=== PATIENT | male | born 1960 ===

== ENCOUNTER 2020-11-05 14:48 | Outpatient (CLI) | payer OTHER, SELFPAY ==
--- NOTE | ~2020-11-05 | XR_ITS ---
EXAMINATION: XR chest 2V 11/05/2020 15:11 INDICATION: Shortness of breath PROCEDURE: 2 view chest COMPARISON: 09/16/2017 FINDINGS: The lungs are clear. The cardiomediastinal silhouette is within normal limits. There are no pleural effusions. There is no pneumothorax suspected. Status post median sternotomy. IMPRESSION: 1: NO ACUTE CARDIOPULMONARY DISEASE. Reviewed, dictated and finalized at location B.
== END 2020-11-05 14:49 | disposition home or self-care (01) ==
PROVIDERS: PCP Internal Medicine; Visit Provider Internal Medicine
DX: R06.02 Shortness of breath (principal)
CPT/HCPCS: 71046

== ENCOUNTER 2025-07-28 21:36 | Emergency (ER) | payer SELFPAY ==
--- OUTSIDE RECORDS SUMMARY | 2024-03-18 02:00 | XMS_ITS ---
Author Organization [facility] Address [address] [address] Care Team Providers Care Risk Management Intern Name Role Phone Cam Ramsey M.D. Primary Care Provider Un available ALEXANDRA SHER [facility], RUBY Mijares [phone] REASON FOR VISIT follow-up Encounters Encounter Location Date Provider Diagnosis [facility] [address] [facility] [address] [place] [address] 03/18/2024 RUBY TAY MD [facility] Plan Of Treatment Next Appt Details Provider Name:RUBY TAY MD [facility], 08/25/2025 04:45:00 PM, [address] , [place] [address], [place], [address], Provider Name:RUBY TAY MD [facility], 09/06/2025 11:00:00 AM, [address] , [place], [place], [id number], Progress Notes * JEVON TORRESOB:1960 (64 yo M)Acc No.[id number]:03/18/2024 Progress Notes Patient: DELANEY NULL Provider: Smita Tay MD :1960 A ge:63 Y S ex:Male Date:03/18/2024 Address:[address] [place] [address], [place], [place] Pcp:Cam Ramsey M.D. Subjective: * Chief Complaints: * 1 . Follow-up. * Medical History: Objective: * Vitals: Assessment: Plan: * Treatment: * Billing Information: * Visit Code: * Procedure Codes: * Electronic signature of RUBY TAY MD [facility] , on 07/28/2025 at 09:38 PM DIRECTOR PACKAGING Sign off status: Pending * Provider: Smita Tay MD Date: 0 03/18/2024 Generated for Sandra figueroa/Lorena/Silvestresmitting on: 1 09/28/2024 09:38 PM DIRECTOR PACKAGING
--- OUTSIDE RECORDS SUMMARY | 2024-03-22 02:00 | XMS_ITS ---
Author Organization [facility] Address [address] [facility] [address] [place] [address] Care Team Providers Care Event Planning Intern Name Role Phone Cam Ramsey M.D. Primary Care Provider Un available ALEXANDRA SHER [facility], RUBY Mijares [phone] REASON FOR VISIT follow up appt (Last seen 2020) Encounters Encounter Location Date Provider Diagnosis [facility], [address] [place] [address] 03/22/2024 RUBY TAY MD [facility] Plan Of Treatment Next Appt Details Provider Name:RUBY TAY MD [facility], 08/25/2025 04:45:00 PM, [address] , [facility] [address], [place], [address], Provider Name:RUBY TAY MD [facility], 09/06/2025 11:00:00 AM, [address] , [place], [place], [phone], Progress Notes * JEVON TORRESOB:1960 (64 yo M)Acc No.[id number]:03/22/2024 Progress Notes Patient: DELANEY NULL Provider: Smita Tay MD :1960 A ge:63 Y S ex:Male Date:03/22/2024 Address:[address] [id number] Pcp:Cam Ramsey M.D. Subjective: * Chief Complaints: * 1 . follow up appt (Last seen 2020). * Medical History: Objective: * Vitals: Assessment: Plan: * Treatment: * Billing Information: * Visit Code: * Procedure Codes: * Electronic signature of RU[facility] on 07/28/2025 at 09:37 PM PULLMAN CLERK Sign off status: Pending * Provider: Smita Tay MD Date: 0 03/22/2024 Generated for Sandra figueroa/Lorena/eTransmitting on: 1 09/28/2024 09:37 PM PULLMAN CLERK
--- OUTSIDE RECORDS SUMMARY | 2024-12-12 02:15 | XMS_ITS ---
Author Organization [facility] Address [address] [address] Care Team Providers Care Technical Sales Support Specialist Name Role Phone Cam Ramsey M.D. Primary Care Provider Un available ALEXANDRA SHER [facility], RUBY Mijares [phone] REASON FOR VISIT 6 month f/u Encounters Encounter Location Date Provider Diagnosis [facility] [facility] [address] [place] [address] 12/12/2024 RUBY TAY MD [facility] Plan Of Treatment Next Appt Details Provider Name:RUBY TAY MD [facility], 08/25/2025 04:45:00 PM, [address] , [place] [address], [place], [address], Provider Name:RUBY TAY MD [facility], 09/06/2025 11:00:00 AM, [address] , [place], [place], [phone], Progress Notes * JEVON TORRESOB:1960 (64 yo M)Acc No.[id number]:12/12/2024 Progress Notes Patient: DELANEY NULL Provider: Smita Tay MD :1960 A ge:64 Y S ex:Male Date:12/12/2024 Address:[address] [place], [place] [address], [place] Pcp:Cam Ramsey M.D. Subjective: * Chief Complaints: * 1 . 6 month f/u. * Medical History: Objective: * Vitals: Assessment: Plan: * Treatment: * Billing Information: * Visit Code: * Procedure Codes: * Electronic signature of RUBY TAY MD [facility] MD on 07/28/2025 at 09:38 PM TRANSACTIONAL ATTORNEY Sign off status: Pending * Provider: Smita Tay MD Date: 0 12/12/2024 Generated for Sandra figueroa/Lorena/Gustavo on: 1 09/28/2024 09:38 PM TRANSACTIONAL ATTORNEY
--- NOTE | ~2025-07-28 | XR_ITS ---
XR chest 2V HOSTORY: CHEST PAIN, SOB. COMPARISON:[ None] FINDINGS: Frontal and lateral views of the chest were obtained. The lungs are clear. The heart size is normal in size. Pulmonary vasculature is unremarkable. Osseous structures are intact. IMPRESSION: No acute lung findings.] [ ] Reviewed, dictated and finalized at location S. LOGUE CLERK
--- NOTE | 2025-07-28 21:37 | ECG_ITS ---
Test Date: 2025-07-28 21:42:00 Measurements Intervals Allison Rate: 73 P: 73 [place]: 188 QRS: 37 QRSD: 141 T: 36 QT: 412 QTc: 456 Interpretive Statements SINUS RHYTHM RIGHT BUNDLE BRANCH BLOCK BASELINE ARTIFACT- I, II, III, AVR, AVF, V1, V3-V4 ABNORMAL ECG No previous ECG available for comparison Electronically Signed On 07-29-2025 09:05:38 CLIENT RESOLUTION SPECIALIST by Timur Gomez D.O.
--- OUTSIDE RECORDS SUMMARY | 2025-07-28 21:38 | XMS_ITS | Patient Health Record ---
Author Organization [facility] Address [address] [place] [address] Care Team Providers Care 4Th Grade Teacher Name Role Phone Nishant Ramsey M.D.eep Primary Care Provider Un available ALEXANDRA SHER [facility], [facility] Unavailable [phone] Allergies No Known Allergies Reason For Referral No Information Medications Medication SIG (Take, Route, Frequency, Duration) Notes Start Date End Date Status Nitroglycerin 0.4 MG 1 tablet under the tongue and allow to dissolve as needed. Take every 5 minutes up to 3 times if chest pain persists Sublingual Three times a day; Duration: 30 days As needed 06/29/2025 Active Aspirin 81 81 MG 1 tablet Orally Once a day; Duration: 30 day(s) 07/12/2025 Active Metoprolol Succinate ER 25 MG 1 tablet Orally Once a day; Duration: 90 days 07/12/2025 Active Social History Tobacco Use: Social History Observation Description Date Details (start date - stop date) Never Smoker NA - NA Tobacco Control (Standard) Question Answer Notes Tobacco use: Nonsmoker Problems Problem Type SNOMED Code ICD Code Onset Dates Problem Status W/U Status Risk Notes Problem Angina pectoris (741207085) Angina pectoris (I20.9) Active confirmed Problem History of repair of congenital atrial septal defect (ASD) (Z87.74) Active confirmed Problem Essential hypertension (94150286) Essential (primary) hypertension (I10) 018 Active confirmed Problem Angina pectoris (192772826) Angina pectoris, unspecified (I20.9) 015 Active confirmed Problem Shortness of breath (720869640) Shortness of breath (R06.02) Active confirmed Problem Dyspnea (035873542) Other forms of dyspnea (R06.09) Active confirmed Problem Chest pain (92499938) Chest pain, unspecified (R07.9) Active confirmed Problem Abnormal results of cardiovascular function studies (315783596) Abnormal result of other cardiovascular function study (R94.39) Active confirmed Problem History of circulatory system disease (815681477) Personal history of other diseases of the circulatory system (Z86.79) Active confirmed Problem Automatic implantable cardiac defibrillator in situ (454707805) Presence of automatic (implantable) cardiac defibrillator (Z95.810) Inactive confirmed Inactive Date:03/27 Vital Signs Heart Rate 75 /min 07/12/2025 Respiratory Rate 16 /min 07/12/2025 Oximetry 97 % 01/09/2025 Blood pressure diastolic 78 mm Hg 07/12/2025 Weight-kg 79.38 kg 07/12/2025 Height 67 in 07/12/2025 Blood pressure systolic 136 mm Hg 07/12/2025 Weight 175 lbs 07/12/2025 BMI 27.41 kg/m2 07/12/2025 Encounters Encounter Location Date Provider Diagnosis [facility] [place] [address] [facility] [address] [place] [address] 01/09/2025 RUBY MORRIS MD [facility] History of repair of congenital atrial septal defect (ASD) Z87.74 ; SOB (shortness of breath) on exertion R06.02 and Essential (primary) hypertension I10 [facility] [place] [address] [facility] [address] [place] [address] 07/12/2025 RUBY MORRIS MD [facility] History of repair of congenital atrial septal defect (ASD) Z87.74 ; Angina pectoris I20.9 ; Shortness of breath R06.02 and Essential (primary) hypertension I10 [facility] [place] [address] [facility] [address] [place] [address] 06/29/2025 RUBY MORRIS MD [facility] Assessments Encounter Date Diagnosis (ICD Code) Assessment Notes Treatment Notes Treatment Clinical Notes Section Notes 01/09/2025 History of repair of congenital atrial septal defect (ASD) (ICD-10 - Z87.74) s/p surgical repair in 2006. No murmurs/gallops /rubs on exam. appears stable. will continue to monitor. 07/12/2025 Angina pectoris (ICD-10 - I20.9) Patient reports a chest pain epsiode 1 week ago which was relieved with NTG s/l. He had another episode the other day. He describes them as mild in intesity which radiates across his chest. He also reports SOB with episodes. Discussed indication for CT coronary angiogram for further evaluation. Patient understood and agreed. Will schedule. Starting Metoprolol Succinate 25 mg daily. Starting ASA 81 mg daily. 07/12/2025 History of repair of congenital atrial septal defect (ASD) (ICD-10 - Z87.74) s/p surgical repair in 2006. No murmurs/gallops /rubs on exam. appears stable. will continue to monitor. 07/12/2025 Shortness of breath (ICD-10 - R06.02) As above 01/09/2025 SOB (shortness of breath) on exertion (ICD-10 - R06.02) Patient had reported CHRISTENSEN in the past. Currently asymptomatic. Recent GTX treadmill stress test (06/01/2024) was negative. Will continue to monitor 07/12/2025 Essential (primary) hypertension (ICD-10 - I10) Blood pressure well controlled today, no changes. 01/09/2025 Essential (primary) hypertension (ICD-10 - I10) 07/12/2025 Other Plan Of Treatment Next Appt Details Provider Name:RUBY MORRIS MD [facility], 08/25/2025 04:45:00 PM, [address], [facility] [address], [place], [address], Provider Name:RUBY MORRIS MD [facility], 09/06/2025 11:00:00 AM, [address], [place], [place], [id number], Insurance Providers Payer Name Payer Address Payer Phone Subscriber Number Group Number Insured Name Patient Relationship to Insured Coverage Start Date Coverage End Date MEDICARE [place] [address] [place] [address] [phone] [id number] DELANEY OBREGON Self - patient is the insured Medical (General) History Medical History History ICD Code - ASD s/p surgical repair 2006 Surgical History Surgery Date(Month/Year) 2) s/p appendectomy 3) s/p hailey 1) s/p ASD repair
--- OUTSIDE RECORDS SUMMARY | 2025-07-28 21:38 | XMS_ITS | Clinical Summary ---
Author Organization [facility] Address [address] [facility] [place] [address] Care Team Providers Care Financial Analysis Consultant Name Role Phone Hector Contreras MD Primary Care Provider Unavail able Source Comments [facility],non-owned Affiliates and Associated Physician Practices is amultiple site organization consisting of ambulatory clinics and hospital sitesin [place], [place], [place] and [place]. This disclosure is being madepursuant to the Care Everywhere program and may not contain all information available regarding this patient. Last updated 18.[employer] Allergies No known active allergies Medications * This document contains information received from the source organization and may not represent a complete record from that organization. * Be aware that medications may not be up to date on this document. Alwaysverify current medications with the patient. No known medications Active Problems No known active problems Social History Tobacco Use Types Packs/Day Years Used Date Smoking Tobacco: Former Alcohol Use Standard Drinks/Week Comments No 0 (1 standard drink = 0.6 oz pur e alcohol) Sex and Gender Information Value Date Recorded Sex Assigned at Not on file Legal Sex Male 12:21 PM UX SPECIALIST Gender Identity Not on file Sexual Orientation Not on file Last Filed Vital Signs Vital Sign Reading Time Taken Comments Blood Pressure 112/65 09/19/2015 10:05 AM UX SPECIALIST Pulse 64 09/19/2015 10:05 AM UX SPECIALIST Temperature 35.8 C (96.5 F) 09/19/2015 9:45 AM UX SPECIALIST Respiratory Rate 16 09/19/2015 10:05 AM UX SPECIALIST Oxygen Saturation 100% 09/19/2015 10:05 AM UX SPECIALIST Inhaled Oxygen Concentration - - Weight 76.2 kg (168 lb) 09/18/2015 8:56 AM UX SPECIALIST Height 162.6 cm (5' 4) 09/18/2015 8:56 AM UX SPECIALIST Body Mass Index 28.84 09/18/2015 8:56 AM UX SPECIALIST Plan of Treatment Health Maintenance Due Date Last Done Comments COLOGUARD (AGES 45-75) - COL ON CA SCREENING 1960 CT COLONOGRAPHY - COLON CA SCREENING 1960 FIT - COLON CA SCREENING 1960 FLEX SIG - COLON CA SCREENING 1960 LIPID TESTING 1960 HIV SCREENING 12/02/1974 HEPATITIS C SCREENING 11/28/1977 DTAP/TDAP/TD VACCINES (1 - Tdap) 12/02/1978 PNEUMOCOCCAL VACCINE 50+ (1 of 1 - PCV) 12/02/2009 ZOSTER VACCINE (1 of 2) 12/02/2009 DEPRESSION SCREENING 08/10/2024 AAA SCREENING 12/02/2024 COVID-19 VACCINE (1 - 2024-2 6 season) 2025 INFLUENZA VACCINE (#1) 2025 COLON MONITORING 09/19/2025 09/19/2015, 09/19/2015 COLONOSCOPY - COLON CA SCREENING 09/19/2025 09/19/2015, 09/19/2015 Colorectal Cancer Screening 09/19/2025 Respiratory Syncytial Virus (RSV) Vaccine Pt: or over 60 yrs (1 - 1-dose 75+ series) 12/02/2034 HEPATITIS B VACCINE Aged Out No longe r eligible based on patient's age to complete this topic HIB VACCINE Aged Out No longer eligi ble based on patient's age to complete this topic HPV VACCINE Aged Out No longer eligi ble based on patient's age to complete this topic MENINGOCOCCAL (Group B) VACCINE SHARED DECISION-MAKING Aged Out No longer eligible based on patient's age to complete this topic MENINGOCOCCAL GROUPS A/C/Y/W VACCINE Aged Out No longer eligible b ased on patient's age to complete this topic Procedures Procedure Name Priority Date/Time Associated Diagnosis Comments ENDOSCOPY, COLON, SCREENING Routine 09/19/2015 8:11 AM UX SPECIALIST from Last 3 Months or Most Recently Relevant to Health Maintenance Results * ENDOSCOPY, COLON, SCREENING (09/19/2015 8:11 AM UX SPECIALIST) Report Endoscopy POC _ Patient Name: Delon Torres Procedure Date: 09/19/2015 8:11 AM Date of : 1960 Admit Type: Outpatient Age: 54 Gender: Male Attending MD: Lindsey Perales MD _ Procedure: Colonoscopy Indications: Hematochezia Providers: Lindsey Perales MD (Doctor) Referring MD: Hector Contreras MD (Referring MD) Medicines: Monitored Anesthesia Care Complications: No immediate complications. _ Procedure: Pre-Anesthesia Assessment: - Prior to the procedure, a History and Physical was performed, and patient medications, allergies and sensitivities were reviewed. The patient's tolerance of previous anesthesia was reviewed. - The risks and benefits of the procedure and the sedation options and risks were discussed with the patient. All questions were answered and informed consent was obtained. - Patient identification and proposed procedure were verified prior to the procedure by the nurse. The procedure was verified in the procedure room. - Pre-procedure physical examination revealed no contraindications to sedation. - ASA Grade Assessment: II - A patient with mild systemic disease. - After reviewing the risks and benefits, the patient was deemed in satisfactory condition to undergo the procedure. - The anesthesia plan was to use moderate sedation/analgesia (conscious sedation). - Immediately prior to administration of medications, the patient was re-assessed for adequacy to receive sedatives. - Sedation was administered by an endoscopy nurse. The sedation level attained was moderate. - The heart rate, respiratory rate, oxygen saturations, blood pressure, adequacy of pulmonary ventilation, and response to care were monitored throughout the procedure. - The physical status of the patient was re-assessed after the procedure. After I obtained informed consent, the scope was passed under direct vision. Throughout the procedure, the patient's blood pressure, pulse, and oxygen saturations were monitored continuously. The Colonoscope was introduced through the anus and advanced to the cecum, identified by appendiceal orifice and ileocecal valve. The colonoscopy was performed without difficulty. The patient tolerated the procedure well. The quality of the bowel preparation was excellent. Findings: The perianal examination was normal. A 6 mm polyp was found in the cecum. The polyp was sessile. The polyp was removed with a hot snare. Resection and retrieval were complete. A 9 mm polyp was found at the hepatic flexure. The polyp was sessile. The polyp was removed with a hot snare. Resection and retrieval were complete. A 5 mm polyp was found in the recto-sigmoid colon. The polyp was sessile. The polyp was removed with a hot biopsy forceps. Resection and retrieval were complete. _ Impression: - One 6 mm polyp in the cecum. Resected and retrieved. - One 9 mm polyp at the hepatic flexure. Resected and retrieved. - One 5 mm polyp at the recto-sigmoid colon. Resected and retrieved. Recommendation: - Discharge patient to home (ambulatory). Procedure Code(s): --- Professional --- 61302, Colonoscopy, flexible; with removal of tumor(s), polyp(s), or other lesion(s) by snare technique 40253, 59, Colonoscopy, flexible; with removal of tumor(s), polyp(s), or other lesion(s) by hot biopsy forceps --- Technical --- 71300, Colonoscopy, flexible; with removal of tumor(s), polyp(s), or other lesion(s) by snare technique 85045, 59, Colonoscopy, flexible; with removal of tumor(s), polyp(s), or other lesion(s) by hot biopsy forceps Diagnosis Code(s): --- Professional --- D12.0, Benign neoplasm of cecum D12.3, Benign neoplasm of transverse colon D12.7, Benign neoplasm of rectosigmoid junction K92.1, Melena --- Technical --- D12.0, Benign neoplasm of cecum D12.3, Benign neoplasm of transverse colon D12.7, Benign neoplasm of rectosigmoid junction K92.1, Melena CPT copyright 2014 [employer]. All rights reserved. The codes documented in this report are preliminary and upon process control supervisor review may be revised to meet current compliance requirements. Lindsey Perales MD Lindsey Perales MD 09/19/2015 9:44:31 AM This report has been signed electronically. Number of Addenda: 0 Note Initiated On: 09/19/2015 8:11 AM [facility] 09/19/2015 8:11 AM UX SPECIALIST Lindsey Perales MD GI PROCEDURE ORDERABLES Edite d Result - Final [facility] [place] [address] from Last 3 Months or Most Recently Relevant to Health Maintenance Insurance [employer] Care Teams Financial Analysis Consultant Relationship Specialty Start Date End Date Hector Contreras MD PCP - General Internal Medicine 09/19/15
--- OUTSIDE RECORDS SUMMARY | 2025-07-28 21:38 | XMS_ITS | Clinical Summary ---
Author Organization [facility] Address [address] [place] [address] Care Team Providers Care Steersman Name Role Phone Cam Ramsey MD Unavailable [phone] Social History Tobacco Use Types Packs/Day Years Used Date Smoking Tobacco: Never Assessed Sex and Gender Information Value Date Recorded Sex Assigned at Not on file Legal Sex Male 12:39 PM CDT Gender Identity Not on file Sexual Orientation Not on file Plan of Treatment Health Maintenance Due Date Last Done Comments Colorectal Cancer Screening Colonoscopy (10 Years) 1960 Hepatitis C 12/02/1977 DTaP, Tdap and Td Vaccines ( 1 - Tdap) 12/02/1978 Pneumococcal Vaccine: 50+ Ye ars (1 of 1 - PCV) 12/02/2009 Zoster Vaccines (1 of 2) 12/02/2009 PHQ-2 (Physician [place]) 08/10/2024 COVID-19 Vaccine ( - 2024-2 6 season) 2025 Influenza Adult (#1) 2025 RSV Immunization or 60+ Years (1 - 1-dose 75+ series) 12/02/2034 Hepatitis A Vaccines Aged Out No long er eligible based on patient's age to complete this topic Meningococcal B Vaccine Aged Out No l onger eligible based on patient's age to complete this topic Meningococcal Vaccine Aged Out No zack carolann eligible based on patient's age to complete this topic RSV Immunizations Under 20 Months Aged Out No longer eligible based on patient's age to complete this topic Insurance [employer] Care Teams Steersman Relationship Specialty Start Date End Date Cam Ramsey MD [address] [facility] [address] [place] [address] INTERNAL MEDICINE 11/26/23
--- OUTSIDE RECORDS SUMMARY | 2025-07-28 21:38 | XMS_ITS | Data Portability ---
Author Organization [place] - [facility], [facility] Address [address] [facility] [address] [place] [address] Assessment No assessment recorded. Plan of Treatment Reminders Order Date Submit Date Provider Last Modified By Organization Details Last Modified Time Details Appointments Follow Up 15 2025 09:15A M Cam Ramsey MD Not available Not available Not available Lab uric acid, serum or plasma 2024 026 [email or web address] 7 [facility], [address], [address], [address], 04/19/2025 10:50:59 HbA1c (hemoglob in A1c), blood 2024 025 HELEN [facility], [address], [facility] [address], [address], 04/25/2025 03:36:09 HbA1c (hemoglob in A1c), blood 2024 026 [email or web address] 7 [facility], [address], [facility] [address], [address], 04/19/2025 10:51:00 lipid panel, serum 2024 026 [email or web address] 7 [facility], [address], [facility] [address], [address], 04/19/2025 10:50:59 TSH, serum or plasma 2024 026 [email or web address] 7 [facility], [address], [address], [place], [address], 04/19/2025 10:50:59 CBC 2024 025 HELEN [facility], [address], [address], [place], [address], 04/25/2025 03:36:07 CMP, serum or plasma 2024 025 HELEN [facility], [address], [address], [place], [address], 04/25/2025 03:36:06 urinalysi s complete, reflex culture 2024 026 [email or web address] 7 [facility], [address], [address], [place], [address], 04/19/2025 10:50:59 uric acid, serum or plasma 2024 025 HELEN Not available 11/11/2024 03:44:06 erythrocy te sedimenta tion rate by westergre n method 2024 025 HELEN Not available 11/11/2024 03:44:07 C-reactiv e protein, quantitat lovely, serum or plasma 2024 025 HELEN Not available 11/11/2024 03:44:09 lipid panel, serum 2024 025 HELEN Not available 11/11/2024 03:44:06 TSH, serum or plasma 2024 025 HELEN Not available 11/11/2024 03:44:09 CMP, serum or plasma 2024 025 HELEN Not available 11/11/2024 03:44:07 urinalysi s complete, reflex culture 2024 025 HELEN Not available 11/11/2024 03:44:08 PSA, serum or plasma 2024 025 HELEN Not available 11/11/2024 03:44:10 microalbu min/creat inine, mass ratio, urine 2024 025 HELEN Not available 11/11/2024 03:44:07 CBC w/ auto diff 2024 025 HELEN Not available 11/11/2024 03:44:09 CMP, serum or plasma 2024 025 HELEN Not available 04/23/2025 05:01:05 CBC w/ auto diff 2023 024 HELEN Not available 01/19/2024 21:42:59 CMP, serum or plasma 2023 024 HELEN Not available 01/19/2024 21:42:58 uric acid, serum or plasma 2023 024 HELEN Not available 10/16/2023 05:18:53 uric acid, serum or plasma 2023 024 Not available 10/16/2023 15:11:58 HbA1c (hemoglob in A1c), blood 2023 024 HELEN Not available 10/16/2023 05:18:57 CBC w/ auto diff 2023 024 HELEN Not available 10/16/2023 05:18:54 TSH, serum or plasma 2023 024 HELEN Not available 10/16/2023 05:18:56 lipid panel, serum 2023 024 HELEN Not available 10/16/2023 05:18:52 lipid panel, serum 2023 024 Not available 10/28/2023 14:18:21 TSH, serum or plasma 2023 024 Not available 10/16/2023 15:11:58 urinalysi s complete, reflex culture 2023 024 HELEN Not available 10/16/2023 05:18:55 CBC w/ auto diff 2023 024 Not available 10/28/2023 14:18:21 CMP, serum or plasma 2023 024 HELEN Not available 10/16/2023 05:18:53 PSA, serum or plasma 2023 024 HELEN Not available 10/16/2023 05:18:56 Referral gastroent erologist referral 2023 024 HELENAUBREY Perry DO, [address] [facility], [address], [place], [address], 12/01/2023 15:25:18 physical therapist referral 2023 024 [facility], [address] [place] [address] , [place], [address], 06/17/2024 11:50:46 Procedures lexiscan cardiolit e stress test (PROC) 2023 024 [id number] Scheduling Department, [address] [place] [address], [address], 11/02/2023 18:28:52 Surgeries None recorded. Imaging None recorded. Medication Orders fluticaso ne propionat e 50 mcg/actua tion nasal spray,andrew pension 2024 025 [id number], [address] [place], [place], [id number], 04/19/2025 10:51:09 loratadin e 10 mg tablet 2024 025 [id number], [address] [place], [id number], 10/13/2024 10:48:51 fluticaso ne propionat e 50 mcg/actua tion nasal spray,andrew pension 2024 025 [place] [id number], [address] [place], [id number], 10/13/2024 10:48:49 Anusol-HC 25 mg rectal supposito ry 2023 024 [id number], [address], [place], [id number], 11/10/2023 12:07:55 Patient TargetsNo targets recorded. Patient Instructions Encounter Date Encounter Id Patient Instructions Last Modified By Organization Details Last Modified Time 10/09/2023 [id number] cervical disc disease: care instructions [email or web address] Not available 10/09/2023 12:10:00 high cholesterol : care instructions [email or web address] Not available 10/09/2023 12:09:59 hemorrhoids: car e instructions [email or web address] Not available 10/09/2023 12:09:59 11/10/2023 [id number] cervical disc disease: care instructions [email or web address] Not available 11/10/2023 12:01:14 hemorrhoids: car e instructions [email or web address] Not available 11/10/2023 12:01:14 high cholesterol : care instructions [email or web address] Not available 11/10/2023 12:01:14 10/13/2024 [id number] cervical disc disease: care instructions [email or web address] Not available 10/13/2024 10:48:41 high cholesterol : care instructions [email or web address] Not available 10/13/2024 10:48:40 hemorrhoids: car e instructions [email or web address] Not available 10/13/2024 10:48:40 hearing loss: care instructions [email or web address] Not available 10/13/2024 10:48:40 I spent a total of _31 minutes (excluding separately reportable procedure time ) in care of this patient. [email or web address] Not available 10/13/2024 10:49:04 04/19/2025 [id number] cervical disc disease: care instructions [email or web address] Not available 04/19/2025 10:51:00 high cholesterol : care instructions [email or web address] Not available 04/19/2025 10:50:59 hemorrhoids: car e instructions [email or web address] Not available 04/19/2025 10:50:59 seasonal allergies: care instructions [email or web address] Not available 04/19/2025 10:50:59 hearing loss: care instructions [email or web address] Not available 04/19/2025 10:50:59 I spent a total of __33____ minutes (excluding separately reportable procedure time ) in care of this patient. Not available 04/19/2025 10:51:09 Reason for Referral Physical Therapist Referral for Degeneration of cervical intervertebral disc Referring Physician: Cam Ramsey, Internal Medicine, Encounter Date: 10/09/2023 Mirror Framer Referral for Hemorrhoids Referring Physician: Cam Ramsey, Internal Medicine, Encounter Date: 11/10/2023 Results Created Date Observation Date Name Description Value Unit Range Abnormal Flag Note LastModifiedBy Organization Detail LastModifiedTime 10/15/19 24 10/16/2023 LIPID PANEL , STAND CRISTY cholesterol, total 182 mg/dL <200 normal Not Available [address] [place], [address], 10/16/2023 05:18:52 10/15/19 24 10/16/2023 LIPID PANEL , STAND CRISTY HDL cholesterol 48 mg/dL > or = 40 normal Not Available [address] [address] [place], [address], 10/16/2023 05:18:52 10/15/19 24 10/16/2023 LIPID PANEL , STAND CRISTY triglyceride s 124 mg/dL <150 normal Not Available [address] [address] [place], [address], 10/16/2023 05:18:52 10/15/1910/16/2023 LIPID PANEL , STAND CRISTY LDL-choleste rol 111 mg/dL _(cristina c) high Refer ence range : <100 Freddie able range <100 mg/dL for prima ry preve ntion ; <70 mg/dL for patie nts with CHD or diabe tic patie nts with > or = 2 CHD risk facto rs. LDL-C is now calcu lated using the [facility] franciscou judie n, which is a valid ated novel ricardoo dee rodgers than the Fried marissa equat ion in the estim ation of LDL-C . [facility] SS et al. SEGUNDO. 2013; 310(1 9): 2061- 2068 (http ://ed ucati on.Qu estAdmittor. com/f aq/FA Q164) Not Available [facility] [address] [address] [place], [address], 10/16/2023 05:18:52 10/15/19 24 10/16/2023 LIPID PANEL , STAND CRISTY chol/HDLC ratio 3.8 (calc ) <5.0 normal Not Available [address] [address] [address], [place], [address], 10/16/2023 05:18:52 10/15/19 24 10/16/2023 LIPID PANEL , STAND CRISTY non HDL cholesterol 134 mg/dL _(cristina c) <130 high For patie nts with diabe mayo plus 1 major ASCVD risk facto r, treat ing to a non-H DL-C goal of <100 mg/dL (LDL- C of <70 mg/dL ) is consi dered a thera peuti c optio n. Not Available [facility] [address] [address] [address] , [place], [address], 10/16/2023 05:18:52 10/15/19 24 10/16/2023 URIC ACID uric acid 6.4 mg/dL 4.0-8. 0 normal Thera peuti c targe t for gout patie nts: <6.0 mg/dL Not Available [facility] [address] [address] [place], [address], 10/16/2023 05:18:53 10/15/19 24 10/16/2023 COMPR EHENS LOVELY METAB OLIC PANEL glucose 100 mg/dL 65-99 high Fasti ng refer ence inter kevin For someo ne witho ut known diabe mayo, a gluco se value betwe en 100 and 125 mg/dL is consi stent with predi abete s and shoul d be confi rmed with a follo w-up test. Not Available [address], [address], 10/16/2023 05:18:53 10/15/19 24 10/16/2023 COMPR EHENS LOVELY METAB OLIC PANEL urea nitrogen (BUN) 20 mg/dL 7-25 normal Not Available [facility] [address], [address], 10/16/2023 05:18:53 10/15/19 24 10/16/2023 COMPR EHENS LOVELY METAB OLIC PANEL creatinine 1.14 mg/dL 0.70-1 .35 normal Not Available [address], [address], 10/16/2023 05:18:53 10/15/19 24 10/16/2023 COMPR EHENS LOVELY METAB OLIC PANEL eGFR 72 mL/mi n/1.7 3m2 > or = 60 normal Not Available [address], [address], 10/16/2023 05:18:53 10/15/19 24 10/16/2023 COMPR EHENS LOVELY METAB OLIC PANEL BUN/creatini ne ratio SEE NOTE: (calc ) 6-22 Not Repor ok: BUN and Creat inine are withi n refer ence range . Not Available [facility] [address], [address], 10/16/2023 05:18:53 10/15/19 24 10/16/2023 COMPR EHENS LOVELY METAB OLIC PANEL sodium 140 mmol/ L 135-14 6 normal Not Available [facility] [address], [address], 10/16/2023 05:18:53 10/15/19 24 10/16/2023 COMPR EHENS LOVELY METAB OLIC PANEL potassium 4.2 mmol/ L 3.5-5. 3 normal Not Available [address], [address], 10/16/2023 05:18:53 10/15/19 24 10/16/2023 COMPR EHENS LOVELY METAB OLIC PANEL chloride 102 mmol/ L 98-110 normal Not Available [address], [address], 10/16/2023 05:18:53 10/15/19 24 10/16/2023 COMPR EHENS LOVELY METAB OLIC PANEL carbon dioxide 31 mmol/ L 20-32 normal Not Available [address], [address], 10/16/2023 05:18:53 10/15/19 24 10/16/2023 COMPR EHENS LOVELY METAB OLIC PANEL calcium 9.4 mg/dL 8.6-10 .3 normal Not Available [address], [address], 10/16/2023 05:18:53 10/15/19 24 10/16/2023 COMPR EHENS LOVELY METAB OLIC PANEL protein, total 7.3 g/dL 6.1-8. 1 normal Not Available [address], [address], 10/16/2023 05:18:53 10/15/19 24 10/16/2023 COMPR EHENS LOVELY METAB OLIC PANEL albumin 4.7 g/dL 3.6-5. 1 normal Not Available [address], [address], 10/16/2023 05:18:53 10/15/19 24 10/16/2023 COMPR EHENS LOVELY METAB OLIC PANEL globulin 2.6 g/dL_ (calc ) 1.9-3. 7 normal Not Available [address], [address], 10/16/2023 05:18:53 10/15/19 24 10/16/2023 COMPR EHENS LOVELY METAB OLIC PANEL albumin/glob ulin ratio 1.8 (calc ) 1.0-2. 5 normal Not Available [address], [address], 10/16/2023 05:18:53 10/15/19 24 10/16/2023 COMPR EHENS LOVELY METAB OLIC PANEL bilirubin, total 0.8 mg/dL 0.2-1. 2 normal Not Available [address], [address], 10/16/2023 05:18:53 10/15/19 24 10/16/2023 COMPR EHENS LOVELY METAB OLIC PANEL alkaline phosphatase 83 U/L 35-144 normal Not Available [address], [address], 10/16/2023 05:18:53 10/15/19 24 10/16/2023 COMPR EHENS LOVELY METAB OLIC PANEL AST 17 U/L 10-35 normal Not Available [address], [address], 10/16/2023 05:18:53 10/15/19 24 10/16/2023 COMPR EHENS LOVELY METAB OLIC PANEL ALT 17 U/L 9-46 normal Not Available [address], [address], 10/16/2023 05:18:53 10/15/19 24 10/16/2023 CBC (INCL UDES DIFF/ PLT) white blood cell count 5.1 thous and/u L 3.8-10 .8 normal Not Available [address], [address], 10/16/2023 05:18:54 10/15/19 24 10/16/2023 CBC (INCL UDES DIFF/ PLT) red blood cell count 5.34 michell on/uL 4.20-5 .80 normal Not Available [address], [address], 10/16/2023 05:18:54 10/15/19 24 10/16/2023 CBC (INCL UDES DIFF/ PLT) hemoglobin 16.6 g/dL 13.2-1 7.1 normal Not Available [address], [address], 10/16/2023 05:18:54 10/15/19 24 10/16/2023 CBC (INCL UDES DIFF/ PLT) hematocrit 48.8 % 38.5-5 0.0 normal Not Available [address], [address], 10/16/2023 05:18:54 10/15/19 24 10/16/2023 CBC (INCL UDES DIFF/ PLT) MCV 91.4 fL 80.0-1 00.0 normal Not Available [address], [address], 10/16/2023 05:18:54 10/15/19 24 10/16/2023 CBC (INCL UDES DIFF/ PLT) MCH 31.1 pg 27.0-3 3.0 normal Not Available [address], [address], 10/16/2023 05:18:54 10/15/19 24 10/16/2023 CBC (INCL UDES DIFF/ PLT) MCHC 34.0 g/dL 32.0-3 6.0 normal Not Available [address], [address], 10/16/2023 05:18:54 10/15/19 24 10/16/2023 CBC (INCL UDES DIFF/ PLT) RDW 12.9 % 11.0-1 5.0 normal Not Available [address], [address], 10/16/2023 05:18:54 10/15/19 24 10/16/2023 CBC (INCL UDES DIFF/ PLT) platelet count 241 thous and/u L 140-40 0 normal Not Available [address], [address], 10/16/2023 05:18:54 10/15/19 24 10/16/2023 CBC (INCL UDES DIFF/ PLT) MPV 10.1 fL 7.5-12 .5 normal Not Available [address], [address], 10/16/2023 05:18:54 10/15/19 24 10/16/2023 CBC (INCL UDES DIFF/ PLT) absolute neutrophils 3249 cells /uL 1500-7 800 normal Not Available [address], [address], 10/16/2023 05:18:54 10/15/19 24 10/16/2023 CBC (INCL UDES DIFF/ PLT) absolute lymphocytes 1199 cells /uL 850-39 00 normal Not Available [address], [address], 10/16/2023 05:18:54 10/15/19 24 10/16/2023 CBC (INCL UDES DIFF/ PLT) absolute monocytes 383 cells /uL 200-95 0 normal Not Available [facility] [address], [address], 10/16/2023 05:18:54 10/15/19 24 10/16/2023 CBC (INCL UDES DIFF/ PLT) absolute eosinophils 250 cells /uL 15-500 normal Not Available [facility] [address], [address], 10/16/2023 05:18:54 10/15/19 24 10/16/2023 CBC (INCL UDES DIFF/ PLT) absolute basophils 20 cells /uL 0-200 normal Not Available [address], [address], 10/16/2023 05:18:54 10/15/19 24 10/16/2023 CBC (INCL UDES DIFF/ PLT) neutrophils 63.7 % normal Not Available [address], [address], 10/16/2023 05:18:54 10/15/19 24 10/16/2023 CBC (INCL UDES DIFF/ PLT) lymphocytes 23.5 % normal Not Available [address], [address], 10/16/2023 05:18:54 10/15/19 24 10/16/2023 CBC (INCL UDES DIFF/ PLT) monocytes 7.5 % normal Not Available [address], [address], 10/16/2023 05:18:54 10/15/19 24 10/16/2023 CBC (INCL UDES DIFF/ PLT) eosinophils 4.9 % normal Not Available [address], [address], 10/16/2023 05:18:54 10/15/19 24 10/16/2023 CBC (INCL UDES DIFF/ PLT) basophils 0.4 % normal Not Available [address], [address], 10/16/2023 05:18:54 10/15/19 24 10/16/2023 URINA LYSIS , COMPL ETE W/REF STEVENSON TO CULTU RE color YELLOW yellow normal Not Available [address], [address], 10/16/2023 05:18:54 03/07/10/16/2023 URINA LYSIS , COMPL ETE W/REF STEVENSON TO CULTU RE appearance CLEAR clear normal Not Available [address], [address], 10/16/2023 05:18:54 10/15/19 24 10/16/2023 URINA LYSIS , COMPL ETE W/REF STEVENSON TO CULTU RE specific gravity 1.021 1.001- 1.035 normal Not Available [address], [address], 10/16/2023 05:18:54 10/15/19 24 10/16/2023 URINA LYSIS , COMPL ETE W/REF STEVENSON TO CULTU RE pH 6.5 5.0-8. 0 normal Not Available [address], [address], 10/16/2023 05:18:54 10/15/19 24 10/16/2023 URINA LYSIS , COMPL ETE W/REF STEVENSON TO CULTU RE glucose NEGATI VE negati ve normal Not Available [address], [address], 10/16/2023 05:18:54 10/15/19 24 10/16/2023 URINA LYSIS , COMPL ETE W/REF STEVENSON TO CULTU RE bilirubin NEGATI VE negati ve normal Not Available [address], [address], 10/16/2023 05:18:54 10/15/19 24 10/16/2023 URINA LYSIS , COMPL ETE W/REF STEVENSON TO CULTU RE ketones NEGATI VE negati ve normal Not Available [address], [address], 10/16/2023 05:18:54 10/15/19 24 10/16/2023 URINA LYSIS , COMPL ETE W/REF STEVENSON TO CULTU RE occult blood NEGATI VE negati ve normal Not Available [address], [address], 10/16/2023 05:18:54 10/15/19 24 10/16/2023 URINA LYSIS , COMPL ETE W/REF STEVENOSN TO CULTU RE protein NEGATI VE negati ve normal Not Available [facility] [address], [address], 10/16/2023 05:18:54 10/15/19 24 10/16/2023 URINA LYSIS , COMPL ETE W/REF STEVENSON TO CULTU RE nitrite NEGATI VE negati ve normal Not Available [facility] [address], [address], 10/16/2023 05:18:54 10/15/19 24 10/16/2023 URINA LYSIS , COMPL ETE W/REF STEVENSON TO CULTU RE leukocyte esterase NEGATI VE negati ve normal Not Available [address], [address], 10/16/2023 05:18:54 10/15/19 24 10/16/2023 URINA LYSIS , COMPL ETE W/REF STEVENSON TO CULTU RE WBC NONE SEEN /hpf < or = 5 normal Not Available [address], [address], 10/16/2023 05:18:54 10/15/19 24 10/16/2023 URINA LYSIS , COMPL ETE W/REF STEVENSON TO CULTU RE RBC NONE SEEN /hpf < or = 2 normal Not Available [facility] [address], [address], 10/16/2023 05:18:54 10/15/19 24 10/16/2023 URINA LYSIS , COMPL ETE W/REF STEVENSON TO CULTU RE squamous epithelial cells NONE SEEN /hpf < or = 5 normal Not Available [address], [address], 10/16/2023 05:18:54 10/15/19 24 10/16/2023 URINA LYSIS , COMPL ETE W/REF STEVENSON TO CULTU RE bacteria NONE SEEN /hpf none seen normal Not Available [address], [address], 10/16/2023 05:18:54 10/15/19 24 10/16/2023 URINA LYSIS , COMPL ETE W/REF STEVENSON TO CULTU RE hyaline cast NONE SEEN /lpf none seen normal Not Available [facility] [address], [address], 10/16/2023 05:18:54 10/15/19 24 10/16/2023 URINA LYSIS , COMPL ETE W/REF STEVENSON TO CULTU RE note This urine was freddy zed for the prese nce of WBC, RBC, bacte fany, casts , and other forme d eleme nts. Only those eleme nts seen were repor ok. Not Available [address], [address], 10/16/2023 05:18:54 10/15/19 24 10/16/2023 REFLE XIVE URINE CULTU RE reflexive urine culture NO CULTU RE INDIC ATED Not Available [address], [address], 10/16/2023 05:18:55 10/15/19 24 10/16/2023 PSA, TOTAL PSA, total 0.62 NG/mL < or = 4.00 normal The total PSA value from this assay syste m is stand ardiz ed again st the WHO stand cristy. The test resul t will be appro ximat vahe 20% lower when silvano red to the equim olar- stand ardiz ed total PSA (Delong man Coult er). Silvano rison of seria l PSA resul ts shoul d be inter prete d with this fact in mind. This test was perfo rmed using the Sieme Tame chemi lumin escen t metho d. Value s obtai dru from diffe rent assay metho ds canno t be used inter knutson eably . PSA level s, regar dless of value , shoul d not be inter prete d as absol [place] evide nce of the prese nce or absen ce of disea se. Not Available [facility] [address] [place], [address], 10/16/2023 05:18:56 10/15/19 24 10/16/2023 TSH TSH 2.05 mIU/L 0.40-4 .50 normal Not Available [facility] [address] [place], [address], 10/16/2023 05:18:56 10/15/1910/16/2023 HEMOG LOBIN A1C hemoglobin A1C 5.4 %_of_ total _HGB <5.7 normal For the purpo se of scremigel copeland for the prese nce of diabe mayo: <5.7% Consi stent with the absen ce of diabe mayo 5.7-6 .4% Consi stent with incre ased risk for diabe mayo (pred iabet es) > or =6.5% Consi stent with diabe mayo This assay resul t is consi stent with a decre ased risk of diabe mayo. Curre ntly, no conse nsus exist s tabby aponte use of hemog lobin A1c for diagn osis of diabe mayo in child abdirashid. Accor ding to Ameri can Diabe mayo Assoc iatio n (ADA) guide lines , hemog lobin A1c <7.0% repre sents optim al contr ol in non-p regna nt diabe tic patie nts. Diffe rent metri cs may apply to speci fic patie nt popul ation s. Stand ards of Medic al Care in Diabe mayo(A DA). This test was perfo rmed on the Abbot t Archi tect c8000 platf orm. Pleas e be advis ed that [facility] will move hemog lobin A1c testi ng to the [facility] platf orm soon. In gener al, direc t silvano rison of the resul ts from diffe rent plat orms is not recom jeremias d. Not Available [address] [place], [address], 10/16/2023 05:18:57 01/19/20 24 01/19/2024 COMPR EHENS LOVELY METAB OLIC PANEL glucose 101 mg/dL 65-99 high Fasti ng refer ence inter kevin For someo ne witho ut known diabe mayo, a gluco se value betwe en 100 and 125 mg/dL is consi stent with predi abete s and shoul d be confi rmed with a follo w-up test. Not Available [address], [address], 01/19/2024 21:42:58 01/19/20 24 01/19/2024 COMPR EHENS LOVELY METAB OLIC PANEL urea nitrogen (BUN) 13 mg/dL 7-25 normal Not Available [address] [address] [place], [address], 01/19/2024 21:42:58 01/19/20 24 01/19/2024 COMPR EHENS LOVELY METAB OLIC PANEL creatinine 1.06 mg/dL 0.70-1 .35 normal Not Available [address], [address], 01/19/2024 21:42:58 01/19/20 24 01/19/2024 COMPR EHENS LOVELY METAB OLIC PANEL eGFR 78 mL/mi n/1.7 3m2 > or = 60 normal Not Available [facility] [address], [address], 01/19/2024 21:42:58 01/19/20 24 01/19/2024 COMPR EHENS LOVELY METAB OLIC PANEL BUN/creatini ne ratio SEE NOTE: (calc ) 6-22 Not Repor ok: BUN and Creat inine are withi n refer ence range . Not Available [facility] [address], [address], 01/19/2024 21:42:58 01/19/20 24 01/19/2024 COMPR EHENS LOVELY METAB OLIC PANEL sodium 139 mmol/ L 135-14 6 normal Not Available [address], [address], 01/19/2024 21:42:58 01/19/20 24 01/19/2024 COMPR EHENS LOVELY METAB OLIC PANEL potassium 4.3 mmol/ L 3.5-5. 3 normal Not Available [address], [address], 01/19/2024 21:42:58 01/19/20 24 01/19/2024 COMPR EHENS LOVELY METAB OLIC PANEL chloride 101 mmol/ L 98-110 normal Not Available [address], [address], 01/19/2024 21:42:58 01/19/20 24 01/19/2024 COMPR EHENS LOVELY METAB OLIC PANEL carbon dioxide 31 mmol/ L 20-32 normal Not Available [address], [address], 01/19/2024 21:42:58 01/19/20 24 01/19/2024 COMPR EHENS LOVELY METAB OLIC PANEL calcium 9.3 mg/dL 8.6-10 .3 normal Not Available [address], [address], 01/19/2024 21:42:58 01/19/20 24 01/19/2024 COMPR EHENS LOVELY METAB OLIC PANEL protein, total 6.6 g/dL 6.1-8. 1 normal Not Available [address], [address], 01/19/2024 21:42:58 01/19/20 24 01/19/2024 COMPR EHENS LOVELY METAB OLIC PANEL albumin 4.2 g/dL 3.6-5. 1 normal Not Available [address] [address] [place], [address], 01/19/2024 21:42:58 01/19/20 24 01/19/2024 COMPR EHENS LOVELY METAB OLIC PANEL globulin 2.4 g/dL_ (calc ) 1.9-3. 7 normal Not Available [address], [address], 01/19/2024 21:42:58 01/19/20 24 01/19/2024 COMPR EHENS LOVELY METAB OLIC PANEL albumin/glob ulin ratio 1.8 (calc ) 1.0-2. 5 normal Not Available [address], [address], 01/19/2024 21:42:58 01/19/20 24 01/19/2024 COMPR EHENS LOVELY METAB OLIC PANEL bilirubin, total 0.6 mg/dL 0.2-1. 2 normal Not Available [address], [address], 01/19/2024 21:42:58 01/19/20 24 01/19/2024 COMPR EHENS LOVELY METAB OLIC PANEL alkaline phosphatase 75 U/L 35-144 normal Not Available [address] [address] [place], [address], 01/19/2024 21:42:58 01/19/20 24 01/19/2024 COMPR EHENS LOVELY METAB OLIC PANEL AST 19 U/L 10-35 normal Not Available [address], [address], 01/19/2024 21:42:58 01/19/20 24 01/19/2024 COMPR EHENS LOVELY METAB OLIC PANEL ALT 17 U/L 9-46 normal Not Available [address], [address], 01/19/2024 21:42:58 01/19/20 24 01/19/2024 CBC (INCL UDES DIFF/ PLT) white blood cell count 5.5 thous and/u L 3.8-10 .8 normal Not Available [address], [address], 01/19/2024 21:42:59 01/19/20 24 01/19/2024 CBC (INCL UDES DIFF/ PLT) red blood cell count 5.12 michell on/uL 4.20-5 .80 normal Not Available [address], [address], 01/19/2024 21:42:59 01/19/20 24 01/19/2024 CBC (INCL UDES DIFF/ PLT) hemoglobin 16.1 g/dL 13.2-1 7.1 normal Not Available [address], [address], 01/19/2024 21:42:59 01/19/20 24 01/19/2024 CBC (INCL UDES DIFF/ PLT) hematocrit 47.0 % 38.5-5 0.0 normal Not Available [address], [address], 01/19/2024 21:42:59 01/19/20 24 01/19/2024 CBC (INCL UDES DIFF/ PLT) MCV 91.8 fL 80.0-1 00.0 normal Not Available [address], [address], 01/19/2024 21:42:59 01/19/20 24 01/19/2024 CBC (INCL UDES DIFF/ PLT) MCH 31.4 pg 27.0-3 3.0 normal Not Available [address], [address], 01/19/2024 21:42:59 01/19/20 24 01/19/2024 CBC (INCL UDES DIFF/ PLT) MCHC 34.3 g/dL 32.0-3 6.0 normal Not Available [address], [address], 01/19/2024 21:42:59 01/19/20 24 01/19/2024 CBC (INCL UDES DIFF/ PLT) RDW 12.4 % 11.0-1 5.0 normal Not Available [address], [address], 01/19/2024 21:42:59 01/19/20 24 01/19/2024 CBC (INCL UDES DIFF/ PLT) platelet count 245 thous and/u L 140-40 0 normal Not Available [address], [address], 01/19/2024 21:42:59 01/19/20 24 01/19/2024 CBC (INCL UDES DIFF/ PLT) MPV 10.4 fL 7.5-12 .5 normal Not Available [address], [address], 01/19/2024 21:42:59 01/19/20 24 01/19/2024 CBC (INCL UDES DIFF/ PLT) absolute neutrophils 3383 cells /uL 1500-7 800 normal Not Available [address], [address], 01/19/2024 21:42:59 01/19/20 24 01/19/2024 CBC (INCL UDES DIFF/ PLT) absolute lymphocytes 1392 cells /uL 850-39 00 normal Not Available [address], [address], 01/19/2024 21:42:59 01/19/20 24 01/19/2024 CBC (INCL UDES DIFF/ PLT) absolute monocytes 413 cells /uL 200-95 0 normal Not Available [address] [place], [address], 01/19/2024 21:42:59 01/19/20 24 01/19/2024 CBC (INCL UDES DIFF/ PLT) absolute eosinophils 292 cells /uL 15-500 normal Not Available [facility] [address], [address], 01/19/2024 21:42:59 01/19/20 24 01/19/2024 CBC (INCL UDES DIFF/ PLT) absolute basophils 22 cells /uL 0-200 normal Not Available [facility] [address], [address], 01/19/2024 21:42:59 01/19/20 24 01/19/2024 CBC (INCL UDES DIFF/ PLT) neutrophils 61.5 % normal Not Available [facility] [address], [address], 01/19/2024 21:42:59 01/19/20 24 01/19/2024 CBC (INCL UDES DIFF/ PLT) lymphocytes 25.3 % normal Not Available [facility] [address], [address], 01/19/2024 21:42:59 01/19/20 24 01/19/2024 CBC (INCL UDES DIFF/ PLT) monocytes 7.5 % normal Not Available [facility] [address], [address], 01/19/2024 21:42:59 01/19/20 24 01/19/2024 CBC (INCL UDES DIFF/ PLT) eosinophils 5.3 % normal Not Available [facility] [address], [address], 01/19/2024 21:42:59 01/19/20 24 01/19/2024 CBC (INCL UDES DIFF/ PLT) basophils 0.4 % normal Not Available [facility] [address], [address], 01/19/2024 21:42:59 11/11/19 25 11/11/2024 LIPID PANEL , STAND CRISTY cholesterol, total 164 mg/dL <200 normal Not Available [address] [address] [place], [address], 11/11/2024 03:44:02 11/11/19 25 11/11/2024 LIPID PANEL , STAND CRISTY HDL cholesterol 44 mg/dL > or = 40 normal Not Available [address] [address] [place], [address], 11/11/2024 03:44:02 11/11/19 25 11/11/2024 LIPID PANEL , STAND CRISTY triglyceride s 116 mg/dL <150 normal Not Available [address], [address], 11/11/2024 03:44:02 11/11/19 25 11/11/2024 LIPID PANEL , STAND CRISTY LDL-choleste rol 99 mg/dL _(cristina c) normal Refer ence range : <100 Freddie able range <100 mg/dL for prima ry preve ntion ; <70 mg/dL for patie nts with CHD or diabe tic patie nts with > or = 2 CHD risk facto rs. LDL-C is now calcu lated using the [facility] calcu judie n, which is a valid ated novel ricardoo dee millan accur acy than the Fried marissa equat ion in the estim ation of LDL-C . [facility] SS et al. SEGUNDO. 2013; 310(1 9): 2061- 2068 (http ://ed ucati on.Qu Hector siegelMy Pick Boxs. com/f aq/FA Q164) Not Available [facility] [address] [place], [address], 11/11/2024 03:44:02 11/11/19 25 11/11/2024 LIPID PANEL , STAND CRISTY chol/HDLC ratio 3.7 (calc ) <5.0 normal Not Available [facility] [address] [place], [address], 11/11/2024 03:44:02 11/11/1911/11/2024 LIPID PANEL , STAND CRISTY non HDL cholesterol 120 mg/dL _(cristina c) <130 normal For patie nts with diabe mayo plus 1 major ASCVD risk facto r, treat ing to a non-H DL-C goal of <100 mg/dL (LDL- C of <70 mg/dL ) is consi dered a thera peuti c optio n. Not Available [facility] [address] [address] [place], [address], 11/11/2024 03:44:02 11/11/1911/11/2024 URIC ACID uric acid 5.7 mg/dL 4.0-8. 0 normal Thera peuti c targe t for gout patie nts: <6.0 mg/dL Not Available [facility] [address] [address] [address], [place], [address], 11/11/2024 03:44:06 11/11/1911/11/2024 COMPR EHENS LOVELY METAB OLIC PANEL glucose 118 mg/dL 65-99 high Fasti ng refer ence inter kevin For someo ne witho ut known diabe mayo, a gluco se value betwe en 100 and 125 mg/dL is consi stent with predi abete s and shoul d be confi rmed with a follo w-up test. Not Available [facility] [address] [address] [address], [place], [address], 11/11/2024 03:44:06 11/11/1911/11/2024 COMPR EHENS LOVELY METAB OLIC PANEL urea nitrogen (BUN) 16 mg/dL 7-25 normal Not Available [facility] [address] [address] [place], [address], 11/11/2024 03:44:06 11/11/19 25 11/11/2024 COMPR EHENS LOVELY METAB OLIC PANEL creatinine 1.00 mg/dL 0.70-1 .35 normal Not Available [address], [address], 11/11/2024 03:44:06 11/11/19 25 11/11/2024 COMPR EHENS LOVELY METAB OLIC PANEL eGFR 84 mL/mi n/1.7 3m2 > or = 60 normal Not Available [address], [address], 11/11/2024 03:44:06 11/11/19 25 11/11/2024 COMPR EHENS LOVELY METAB OLIC PANEL BUN/creatini ne ratio SEE NOTE: (calc ) 6-22 Not Repor ok: BUN and Creat inine are withi n refer ence range . Not Available [address], [address], 11/11/2024 03:44:06 11/11/19 25 11/11/2024 COMPR EHENS LOVELY METAB OLIC PANEL sodium 139 mmol/ L 135-14 6 normal Not Available [address], [address], 11/11/2024 03:44:06 11/11/19 25 11/11/2024 COMPR EHENS LOVELY METAB OLIC PANEL potassium 4.5 mmol/ L 3.5-5. 3 normal Not Available [address], [address], 11/11/2024 03:44:06 11/11/19 25 11/11/2024 COMPR EHENS LOVELY METAB OLIC PANEL chloride 104 mmol/ L 98-110 normal Not Available [address], [address], 11/11/2024 03:44:06 11/11/19 25 11/11/2024 COMPR EHENS LOVELY METAB OLIC PANEL carbon dioxide 27 mmol/ L 20-32 normal Not Available [address], [address], 11/11/2024 03:44:06 11/11/19 25 11/11/2024 COMPR EHENS LOVELY METAB OLIC PANEL calcium 9.1 mg/dL 8.6-10 .3 normal Not Available [address], [address], 11/11/2024 03:44:06 11/11/19 25 11/11/2024 COMPR EHENS LOVELY METAB OLIC PANEL protein, total 6.7 g/dL 6.1-8. 1 normal Not Available [address], [address], 11/11/2024 03:44:06 11/11/19 25 11/11/2024 COMPR EHENS LOVELY METAB OLIC PANEL albumin 4.2 g/dL 3.6-5. 1 normal Not Available [address], [address], 11/11/2024 03:44:06 11/11/19 25 11/11/2024 COMPR EHENS LOVELY METAB OLIC PANEL globulin 2.5 g/dL_ (calc ) 1.9-3. 7 normal Not Available [address], [address], 11/11/2024 03:44:06 11/11/19 25 11/11/2024 COMPR EHENS LOVELY METAB OLIC PANEL albumin/glob ulin ratio 1.7 (calc ) 1.0-2. 5 normal Not Available [address], [address], 11/11/2024 03:44:06 11/11/19 25 11/11/2024 COMPR EHENS LOVELY METAB OLIC PANEL bilirubin, total 0.4 mg/dL 0.2-1. 2 normal Not Available [address], [address], 11/11/2024 03:44:06 11/11/19 25 11/11/2024 COMPR EHENS LOVELY METAB OLIC PANEL alkaline phosphatase 81 U/L 35-144 normal Not Available [address], [address], 11/11/2024 03:44:06 11/11/19 25 11/11/2024 COMPR EHENS LOEVLY METAB OLIC PANEL AST 17 U/L 10-35 normal Not Available [address], [address], 11/11/2024 03:44:06 11/11/19 25 11/11/2024 COMPR EHENS LOVELY METAB OLIC PANEL ALT 20 U/L 9-46 normal Not Available [address], [address], 11/11/2024 03:44:06 11/11/19 25 11/11/2024 ALBUM IN, RANDO M URINE W/CRE ATINI NE creatinine, random urine 136 mg/dL 20-320 normal Not Available [address], [address], 11/11/2024 03:44:07 11/11/19 25 11/11/2024 ALBUM IN, RANDO M URINE W/CRE ATINI NE albumin, urine 0.3 mg/dL see note: normal Refer ence Range : Refer ence Range Not estab lishe d Not Available [address], [address], 11/11/2024 03:44:07 11/11/19 25 11/11/2024 ALBUM IN, RANDO M URINE W/CRE ATINI NE albumin/crea tinine ratio, random urine 2 mg/g_ creat <30 normal The ADA defin es abnor malit ies in album in excre tion as follo ws: Album inuri a Categ ory Resul t (mg/g creat inine ) Cindy l to Mildl y incre ased <30 Moder ately incre ased 30-29 9 Sever vahe incre ased > OR = 300 The ADA recom mends that at least two of three speci mens colle cted withi n a 3-6 month perio d be abnor mal befor e consi jenna g a patie nt to be withi n a diagn ostic categ ory. Not Available [address], [address], 11/11/2024 03:44:07 11/11/19 25 11/11/2024 SED RATE BY MODIF IED WESTE RGREN sed rate by modified westergren 2 mm/h < or = 20 normal Not Available [address], [address], 11/11/2024 03:44:07 11/11/19 25 11/11/2024 URINA LYSIS , COMPL ETE W/REF STEVENSON TO CULTU RE color YELLOW yellow normal Not Available [address], [address], 11/11/2024 03:44:08 11/11/19 25 11/11/2024 URINA LYSIS , COMPL ETE W/REF STEVENSON TO CULTU RE appearance CLEAR clear normal Not Available [address], [address], 11/11/2024 03:44:08 11/11/19 25 11/11/2024 URINA LYSIS , COMPL ETE W/REF STEVENSON TO CULTU RE specific gravity 1.016 1.001- 1.035 normal Not Available [address], [address], 11/11/2024 03:44:08 11/11/19 25 11/11/2024 URINA LYSIS , COMPL ETE W/REF STEVENSON TO CULTU RE pH < OR = 5.0 5.0-8. 0 normal Not Available [address], [address], 11/11/2024 03:44:08 11/11/19 25 11/11/2024 URINA LYSIS , COMPL ETE W/REF STEVENSON TO CULTU RE glucose NEGATI VE negati ve normal Not Available [address], [address], 11/11/2024 03:44:08 11/11/19 25 11/11/2024 URINA LYSIS , COMPL ETE W/REF STEVENSON TO CULTU RE bilirubin NEGATI VE negati ve normal Not Available [facility] [address], [address], 11/11/2024 03:44:08 11/11/19 25 11/11/2024 URINA LYSIS , COMPL ETE W/REF STEVENSON TO CULTU RE ketones NEGATI VE negati ve normal Not Available [address], [address], 11/11/2024 03:44:08 11/11/19 25 11/11/2024 URINA LYSIS , COMPL ETE W/REF STEVENSON TO CULTU RE occult blood NEGATI VE negati ve normal Not Available [address], [address], 11/11/2024 03:44:08 11/11/19 25 11/11/2024 URINA LYSIS , COMPL ETE W/REF STEVENSON TO CULTU RE protein NEGATI VE negati ve normal Not Available [address], [address], 11/11/2024 03:44:08 11/11/19 25 11/11/2024 URINA LYSIS , COMPL ETE W/REF STEVENSON TO CULTU RE nitrite NEGATI VE negati ve normal Not Available [facility] [address], [address], 11/11/2024 03:44:08 11/11/19 25 11/11/2024 URINA LYSIS , COMPL ETE W/REF STEVENSON TO CULTU RE leukocyte esterase NEGATI VE negati ve normal Not Available [address], [address], 11/11/2024 03:44:08 11/11/19 25 11/11/2024 URINA LYSIS , COMPL ETE W/REF STEVENSON TO CULTU RE WBC NONE SEEN /hpf < or = 5 normal Not Available [address], [address], 11/11/2024 03:44:08 11/11/19 25 11/11/2024 URINA LYSIS , COMPL ETE W/REF STEVENSON TO CULTU RE RBC NONE SEEN /hpf < or = 2 normal Not Available [address], [address], 11/11/2024 03:44:08 11/11/19 25 11/11/2024 URINA LYSIS , COMPL ETE W/REF STEVENSON TO CULTU RE squamous epithelial cells NONE SEEN /hpf < or = 5 normal Not Available [address], [address], 11/11/2024 03:44:08 11/11/19 25 11/11/2024 URINA LYSIS , COMPL ETE W/REF STEVENSON TO CULTU RE bacteria NONE SEEN /hpf none seen normal Not Available [address], [address], 11/11/2024 03:44:08 11/11/19 25 11/11/2024 URINA LYSIS , COMPL ETE W/REF STEVENSON TO CULTU RE hyaline cast NONE SEEN /lpf none seen normal Not Available [address], [address], 11/11/2024 03:44:08 11/11/19 25 11/11/2024 URINA LYSIS , COMPL ETE W/REF STEVENSON TO CULTU RE note This urine was freddy zed for the prese nce of WBC, RBC, bacte fany, casts , and other forme d eleme nts. Only those eleme nts seen were repor ok. Not Available [address], [address], 11/11/2024 03:44:08 11/11/19 25 11/11/2024 CBC (INCL UDES DIFF/ PLT) white blood cell count 5.2 thous and/u L 3.8-10 .8 normal Not Available [facility] [address], [address], 11/11/2024 03:44:09 11/11/19 25 11/11/2024 CBC (INCL UDES DIFF/ PLT) red blood cell count 5.03 michell on/uL 4.20-5 .80 normal Not Available [facility] [address], [address], 11/11/2024 03:44:09 11/11/19 25 11/11/2024 CBC (INCL UDES DIFF/ PLT) hemoglobin 15.7 g/dL 13.2-1 7.1 normal Not Available [address], [address], 11/11/2024 03:44:09 11/11/19 25 11/11/2024 CBC (INCL UDES DIFF/ PLT) hematocrit 45.0 % 38.5-5 0.0 normal Not Available [facility] [address], [address], 11/11/2024 03:44:09 11/11/19 25 11/11/2024 CBC (INCL UDES DIFF/ PLT) MCV 89.5 fL 80.0-1 00.0 normal Not Available [facility] [address], [address], 11/11/2024 03:44:09 11/11/19 25 11/11/2024 CBC (INCL UDES DIFF/ PLT) MCH 31.2 pg 27.0-3 3.0 normal Not Available [facility] [address], [address], 11/11/2024 03:44:09 11/11/19 25 11/11/2024 CBC (INCL UDES DIFF/ PLT) MCHC 34.9 g/dL 32.0-3 6.0 normal For adult s, a sligh t decre ase in the calcu lated MCHC value (in the range of 30 to 32 g/dL) is most likel y not clini pau signi ficgalo t; naveen er, it shoul d be inter prete d with cauti on in corre lat n with other red cell hernan eters and the patie nt's clini cristina condi tion. Not Available [address], [address], 11/11/2024 03:44:09 11/11/19 25 11/11/2024 CBC (INCL UDES DIFF/ PLT) RDW 12.6 % 11.0-1 5.0 normal Not Available [address], [address], 11/11/2024 03:44:09 11/11/19 25 11/11/2024 CBC (INCL UDES DIFF/ PLT) platelet count 260 thous and/u L 140-40 0 normal Not Available [facility] [address], [address], 11/11/2024 03:44:09 11/11/19 25 11/11/2024 CBC (INCL UDES DIFF/ PLT) MPV 10.0 fL 7.5-12 .5 normal Not Available [facility] [address], [address], 11/11/2024 03:44:09 11/11/19 25 11/11/2024 CBC (INCL UDES DIFF/ PLT) absolute neutrophils 3172 cells /uL 1500-7 800 normal Not Available [facility] [address], [address], 11/11/2024 03:44:09 11/11/19 25 11/11/2024 CBC (INCL UDES DIFF/ PLT) absolute lymphocytes 1378 cells /uL 850-39 00 normal Not Available [address], [address], 11/11/2024 03:44:09 11/11/19 25 11/11/2024 CBC (INCL UDES DIFF/ PLT) absolute monocytes 380 cells /uL 200-95 0 normal Not Available [address], [address], 11/11/2024 03:44:09 11/11/19 25 11/11/2024 CBC (INCL UDES DIFF/ PLT) absolute eosinophils 239 cells /uL 15-500 normal Not Available [address], [address], 11/11/2024 03:44:09 11/11/19 25 11/11/2024 CBC (INCL UDES DIFF/ PLT) absolute basophils 31 cells /uL 0-200 normal Not Available [address], [address], 11/11/2024 03:44:09 11/11/19 25 11/11/2024 CBC (INCL UDES DIFF/ PLT) neutrophils 61 % normal Not Available [address], [address], 11/11/2024 03:44:09 11/11/19 25 11/11/2024 CBC (INCL UDES DIFF/ PLT) lymphocytes 26.5 % normal Not Available [address], [address], 11/11/2024 03:44:09 11/11/19 25 11/11/2024 CBC (INCL UDES DIFF/ PLT) monocytes 7.3 % normal Not Available [address], [address], 11/11/2024 03:44:09 11/11/19 25 11/11/2024 CBC (INCL UDES DIFF/ PLT) eosinophils 4.6 % normal Not Available [address], [address], 11/11/2024 03:44:09 11/11/19 25 11/11/2024 CBC (INCL UDES DIFF/ PLT) basophils 0.6 % normal Not Available [address], [address], 11/11/2024 03:44:09 11/11/19 25 11/11/2024 C-RAFY CTIVE PROTE IN C-reactive protein <3.0 mg/L <8.0 normal Not Available [address], [address], 11/11/2024 03:44:09 11/11/19 25 11/11/2024 TSH TSH 2.80 mIU/L 0.40-4 .50 normal Not Available [address], [address], 11/11/2024 03:44:09 11/11/19 25 11/11/2024 PSA, TOTAL PSA, total 0.64 NG/mL < or = 4.00 normal The total PSA value from this assay syste m is stand ardiz ed again st the WHO stand cristy. The test resul t will be appro ximat vahe 20% lower when silvano red to the equim olar- stand ardiz ed total PSA (Delong man Coult er). Silvano rison of seria l PSA resul ts shoul d be inter prete d with this fact in mind. This test was perfo rmed using the Sieme ns chemi lumin escen t metho d. Value s obtai rdu from diffe rent assay metho ds canno t be used inter knutson eably . PSA level s, regar dless of value , shoul d not be inter prete d as absol [place] evide nce of the prese nce or absen ce of disea se. Not Available [address] [place], [address], 11/11/2024 03:44:10 11/16/19 25 11/15/2024 HEMOG LOBIN A1C hemoglobin A1C 5.8 %_of_ total _HGB <5.7 high For someo ne witho ut known diabe mayo, a hemog lobin A1c value betwe en 5.7% and 6.4% is consi stent with predi abete s and shoul d be confi rmed with a follo w-up test. For someo ne with known diabe mayo, a value <7% indic ates that their diabe mayo is well contr olled . A1c targe ts shoul d be indiv idual ized based on durat ion of diabe mayo, age, comor bid condi tions , and other consi derat ions. This assay resul t is consi stent with an incre ased risk of diabe mayo. Curre ntly, no conse nsus exist s regar ding use of hemog lobin A1c for diagn osis of diabe mayo for child abdirashid. Not Available [address] [address] [place], [address], 11/15/2024 23:58:15 04/24/20 25 04/25/2025 LIPID PANEL , STAND CRISTY cholesterol, total 148 mg/dL <200 normal Not Available [facility] [address] [address] [place], [address], 04/25/2025 03:36:05 04/24/20 25 04/25/2025 LIPID PANEL , STAND CRISTY HDL cholesterol 45 mg/dL > or = 40 normal Not Available [facility] [address] [address] [place], [address], 04/25/2025 03:36:05 04/24/20 25 04/25/2025 LIPID PANEL , STAND CRISTY triglyceride s 107 mg/dL <150 normal Not Available [facility] [address] [place], [address], 04/25/2025 03:36:05 04/24/2004/25/2025 LIPID PANEL , STAND CRISTY LDL-choleste rol 83 mg/dL _(cristina c) normal Refer ence range : <100 Freddie able range <100 mg/dL for prima ry preve ntion ; <70 mg/dL for patie nts with CHD or diabe tic patie nts with > or = 2 CHD risk facto rs. LDL-C is now calcu lated using the [facility] calcu latio n, which is a valid ated novel metho d provi fadi carbajal r accur acy than the Fried marissa equat ion in the estim ation of LDL-C . [facility] SS et al. SEGUNDO. 2013; 310(1 9): 2061- 2068 (http ://ed ucati on.Qu jazminAdmittor. com/f aq/FA Q164) Not Available [address] [address] [address], [place], [address], 04/25/2025 03:36:05 04/24/2004/25/2025 LIPID PANEL , STAND CRISTY chol/HDLC ratio 3.3 (calc ) <5.0 normal Not Available [facility] [address] [place], [address], 04/25/2025 03:36:05 04/24/2004/25/2025 LIPID PANEL , STAND CRISTY non HDL cholesterol 103 mg/dL _(cristina c) <130 normal For patie nts with diabe mayo plus 1 major ASCVD risk facto r, treat ing to a non-H DL-C goal of <100 mg/dL (LDL- C of <70 mg/dL ) is sriram dickens c optio n. Not Available [facility] [address] [place], [address], 04/25/2025 03:36:05 04/24/2004/25/2025 URIC ACID uric acid 6.7 mg/dL 4.0-8. 0 normal Thera pesabino c targe t for gout patie nts: <6.0 mg/dL Not Available [address], [address], 04/25/2025 03:36:06 04/24/2004/25/2025 COMPR EHENS LOVELY METAB OLIC PANEL glucose 101 mg/dL 65-99 high Fasti ng refer ence inter kevin For someo ne witho ut known diabe mayo, a gluco se value betwe en 100 and 125 mg/dL is consi stent with predi abete s and shoul d be confi rmed with a follo w-up test. Not Available [address], [address], 04/25/2025 03:36:06 04/24/2004/25/2025 COMPR EHENS LOVELY METAB OLIC PANEL urea nitrogen (BUN) 24 mg/dL 7-25 normal Not Available [address], [address], 04/25/2025 03:36:06 04/24/2004/25/2025 COMPR EHENS LOVELY METAB OLIC PANEL creatinine 1.07 mg/dL 0.70-1 .35 normal Not Available [facility] [address], [address], 04/25/2025 03:36:06 04/24/2004/25/2025 COMPR EHENS LOVELY METAB OLIC PANEL eGFR 77 mL/mi n/1.7 3m2 > or = 60 normal Not Available [address], [address], 04/25/2025 03:36:06 04/24/2004/25/2025 COMPR EHENS LOVELY METAB OLIC PANEL BUN/creatini ne ratio SEE NOTE: (calc ) 6-22 Not Repor ok: BUN and Creat inine are withi n refer ence range . Not Available [facility] [place] [address] [place], [address], 04/25/2025 03:36:06 04/24/2004/25/2025 COMPR EHENS LOVELY METAB OLIC PANEL sodium 139 mmol/ L 135-14 6 normal Not Available [address], [address], 04/25/2025 03:36:06 04/24/2004/25/2025 COMPR EHENS LOVELY METAB OLIC PANEL potassium 4.2 mmol/ L 3.5-5. 3 normal Not Available [address], [address], 04/25/2025 03:36:06 04/24/2004/25/2025 COMPR EHENS LOVELY METAB OLIC PANEL chloride 105 mmol/ L 98-110 normal Not Available [address], [address], 04/25/2025 03:36:06 04/24/2004/25/2025 COMPR EHENS LOVELY METAB OLIC PANEL carbon dioxide 27 mmol/ L 20-32 normal Not Available [address], [address], 04/25/2025 03:36:06 04/24/2004/25/2025 COMPR EHENS LOVELY METAB OLIC PANEL calcium 9.0 mg/dL 8.6-10 .3 normal Not Available [address], [address], 04/25/2025 03:36:06 04/24/2004/25/2025 COMPR EHENS LOVELY METAB OLIC PANEL protein, total 6.6 g/dL 6.1-8. 1 normal Not Available [address], [address], 04/25/2025 03:36:06 04/24/2004 0504/25/2025 COMPR EHENS LOVELY METAB OLIC PANEL albumin 4.3 g/dL 3.6-5. 1 normal Not Available [address], [address], 04/25/2025 03:36:06 04/24/2004/25/2025 COMPR EHENS LOVELY METAB OLIC PANEL globulin 2.3 g/dL_ (calc ) 1.9-3. 7 normal Not Available [address], [address], 04/25/2025 03:36:06 04/24/2004/25/2025 COMPR EHENS LOVELY METAB OLIC PANEL albumin/glob ulin ratio 1.9 (calc ) 1.0-2. 5 normal Not Available [address], [address], 04/25/2025 03:36:06 04/24/2004/25/2025 COMPR EHENS LOVELY METAB OLIC PANEL bilirubin, total 0.6 mg/dL 0.2-1. 2 normal Not Available [address], [address], 04/25/2025 03:36:06 04/24/2004/25/2025 COMPR EHENS LOVELY METAB OLIC PANEL alkaline phosphatase 74 U/L 35-144 normal Not Available [address], [address], 04/25/2025 03:36:06 04/24/2004/25/2025 COMPR EHENS LOVELY METAB OLIC PANEL AST 21 U/L 10-35 normal Not Available [address], [address], 04/25/2025 03:36:06 04/24/2004/25/2025 COMPR EHENS LOVELY METAB OLIC PANEL ALT 17 U/L 9-46 normal Not Available [address], [address], 04/25/2025 03:36:06 04/24/2004/25/2025 CBC (H/H, RBC, INDIC ES, WBC, PLT) white blood cell count 5.5 thous and/u L 3.8-10 .8 normal Not Available [address], [address], 04/25/2025 03:36:07 04/24/2004/25/2025 CBC (H/H, RBC, INDIC ES, WBC, PLT) red blood cell count 4.89 michlel on/uL 4.20-5 .80 normal Not Available [address], [address], 04/25/2025 03:36:07 04/24/2004/25/2025 CBC (H/H, RBC, INDIC ES, WBC, PLT) hemoglobin 15.3 g/dL 13.2-1 7.1 normal Not Available [address], [address], 04/25/2025 03:36:07 04/24/2004/25/2025 CBC (H/H, RBC, INDIC ES, WBC, PLT) hematocrit 45.7 % 38.5-5 0.0 normal Not Available [address], [address], 04/25/2025 03:36:07 04/24/2004/25/2025 CBC (H/H, RBC, INDIC ES, WBC, PLT) MCV 93.5 fL 80.0-1 00.0 normal Not Available [address], [address], 04/25/2025 03:36:07 04/24/2004/25/2025 CBC (H/H, RBC, INDIC ES, WBC, PLT) MCH 31.3 pg 27.0-3 3.0 normal Not Available [address], [address], 04/25/2025 03:36:07 04/24/2004/25/2025 CBC (H/H, RBC, INDIC ES, WBC, PLT) MCHC 33.5 g/dL 32.0-3 6.0 normal For adult s, a sligh t decre ase in the calcu lated MCHC value (in the range of 30 to 32 g/dL) is most likel y not clini pau signi fican t; naveen er, it shoul d be inter prete d with cauti on in corre latio n with other red cell hernan eters and the patie nt's clini cristina condi tion. Not Available [address], [address], 04/25/2025 03:36:07 04/24/2004/25/2025 CBC (H/H, RBC, INDIC ES, WBC, PLT) RDW 12.8 % 11.0-1 5.0 normal Not Available [address], [address], 04/25/2025 03:36:07 04/24/2004/25/2025 CBC (H/H, RBC, INDIC ES, WBC, PLT) platelet count 223 thous and/u L 140-40 0 normal Not Available [address], [address], 04/25/2025 03:36:07 04/24/2004/25/2025 CBC (H/H, RBC, INDIC ES, WBC, PLT) MPV 9.5 fL 7.5-12 .5 normal Not Available [address], [address], 04/25/2025 03:36:07 04/24/2004/25/2025 URINA LYSIS , COMPL ETE W/REF STEVENSON TO CULTU RE color YELLOW yellow normal Not Available [address], [address], 04/25/2025 03:36:07 04/24/2004/25/2025 URINA LYSIS , COMPL ETE W/REF STEVENSON TO CULTU RE appearance CLEAR clear normal Not Available [address], [address], 04/25/2025 03:36:07 04/24/2004/25/2025 URINA LYSIS , COMPL ETE W/REF STEVENSON TO CULTU RE specific gravity 1.015 1.001- 1.035 normal Not Available [address], [address], 04/25/2025 03:36:07 04/24/2004/25/2025 URINA LYSIS , COMPL ETE W/REF STEVENSON TO CULTU RE pH < OR = 5.0 5.0-8. 0 abnormal Not Available [address], [address], 04/25/2025 03:36:07 04/24/2004/25/2025 URINA LYSIS , COMPL ETE W/REF STEVENSON TO CULTU RE glucose NEGATI VE negati ve normal Not Available [address], [address], 04/25/2025 03:36:07 04/24/2004/25/2025 URINA LYSIS , COMPL ETE W/REF STEVENSON TO CULTU RE bilirubin NEGATI VE negati ve normal Not Available [address], [address], 04/25/2025 03:36:07 04/24/2004/25/2025 URINA LYSIS , COMPL ETE W/REF STEVENSON TO CULTU RE ketones NEGATI VE negati ve normal Not Available [address], [address], 04/25/2025 03:36:07 04/24/2004/25/2025 URINA LYSIS , COMPL ETE W/REF STEVENSON TO CULTU RE occult blood NEGATI VE negati ve normal Not Available [address], [address], 04/25/2025 03:36:07 04/24/2004/25/2025 URINA LYSIS , COMPL ETE W/REF STEVENSON TO CULTU RE protein NEGATI VE negati ve normal Not Available [address], [address], 04/25/2025 03:36:07 04/24/2004/25/2025 URINA LYSIS , COMPL ETE W/REF STEVENSON TO CULTU RE nitrite NEGATI VE negati ve normal Not Available [address], [address], 04/25/2025 03:36:07 04/24/2004/25/2025 URINA LYSIS , COMPL ETE W/REF STEVENSON TO CULTU RE leukocyte esterase NEGATI VE negati ve normal Not Available [address], [address], 04/25/2025 03:36:07 04/24/2004/25/2025 URINA LYSIS , COMPL ETE W/REF STEVENSON TO CULTU RE WBC NONE SEEN /hpf < or = 5 normal Not Available [address], [address], 04/25/2025 03:36:07 04/24/2004/25/2025 URINA LYSIS , COMPL ETE W/REF STEVENSON TO CULTU RE RBC NONE SEEN /hpf < or = 2 normal Not Available [address], [address], 04/25/2025 03:36:07 04/24/2004/25/2025 URINA LYSIS , COMPL ETE W/REF STEVENSON TO CULTU RE squamous epithelial cells NONE SEEN /hpf < or = 5 normal Not Available [address], [address], 04/25/2025 03:36:07 04/24/2004/25/2025 URINA LYSIS , COMPL ETE W/REF STEVENSON TO CULTU RE bacteria NONE SEEN /hpf none seen normal Not Available [facility] [address], [address], 04/25/2025 03:36:07 04/24/2004/25/2025 URINA LYSIS , COMPL ETE W/REF STEVENSON TO CULTU RE hyaline cast NONE SEEN /lpf none seen normal Not Available [address], [address], 04/25/2025 03:36:07 04/24/2004/25/2025 URINA LYSIS , COMPL ETE W/REF STEVENSON TO CULTU RE note This urine was freddy zed for the prese nce of WBC, RBC, bacte fany, casts , and other forme d eleme nts. Only those eleme nts seen were repor ok. Not Available [address], [address], 04/25/2025 03:36:07 04/24/2004/25/2025 TSH W/REF STEVENSON TO FT4 TSH w/reflex to FT4 2.32 mIU/L 0.40-4 .50 normal Not Available [facility] [address], [address], 04/25/2025 03:36:08 04/24/2004/25/2025 HEMOG LOBIN A1C hemoglobin A1C 5.7 %_of_ total _HGB <5.7 high For someo ne witho ut known diabe amyo, a hemog lobin A1c value betwe en 5.7% and 6.4% is consi stent with predi abete s and shoul d be confi rmed with a follo w-up test. For someo ne with known diabe mayo, a value <7% indic ates that their diabe mayo is well contr olled . A1c targe ts shoul d be indiv idual ized based on durat ion of diabe mayo, age, comor bid condi tions , and other consi derat ions. This assay resul t is consi stent with an incre ased risk of diabe mayo. Curre ntly, no conse nsus exist s regar ding use of hemog lobin A1c for diagn osis of diabe mayo for child abdirashid. Not Available [facility] [address], [place], [address], 04/25/2025 03:36:09 10/04/19 24 10/04/2023 XR, hand, 3 or more view No observ ation record ed. [facility] [address] [place], [address], 10/15/2023 17:46:29 Result Notes None recorded. Problems Name Problem SNOMED Code Status Onset Date Resolution Date Notes Provider Name and Address Organization Details Recorded Time Ex-smoke r [id number] Completed 03/27/2023 Former smoker Cam Ramsey MD [address] [facility] [address], [place], [address], [facility] 3 16:10:15 Acute upper respirat ory infectio n 96929316 Completed 03/27/2023 Acute URI Cam Ramsey MD [address], [place], [address], [facility] 3 16:10:11 Heart disease 97070553 Completed 03/27/2023 Disorder of heart Cam Ramsey MD [address] [facility] [address], [place], [address], [facility] 3 16:10:20 History of SARS-CoV -2 [id number] 2529262 Completed 03/27/2023 History of disease caused by Severe acute respirat ory syndrome coronavi daniele 2 (situati on) Cam Ramsey MD [address] [facility] [address], [place], [address], [facility] 3 16:10:17 Dyspnea on exertion 43543226 Completed 03/27/2023 Dyspnea on exertion Cam Ramsey MD [address] [facility] [address], [place], [address], [facility] 4 12:10:21 Tendinit is of left shoulder 55866000899 66329 Completed 03/27/2023 Tendonit is of left shoulder Cam Ramsey MD [address] [facility] [address], [place], [address], [facility] 3 16:10:25 Preventi ve procedur e Active 2022 Sadie Kate [facility] 3 15:31:54 Chronic idiopath ic constipa tion 67693646 Active 2022 Cam Ramsey MD [address] [facility] [address], [place], [address], [facility] 3 16:12:52 Neck pain 76409881 Active 2022 Cam Ramsey MD [address] [facility] [address], [place], [address], [facility] 3 16:15:31 Hyperlip idemia 72471825 Active 2022 Cam Ramsey MD [address] [facility] [address], [place], [address], [facility] 3 15:28:45 Gastroes ophageal reflux disease without esophagi tis 512359883 Active 2022 Cam Ramsey MD [address] [facility] [address], [place], [address], [facility] 3 15:30:29 Hemorrho ids 44260203 Active 2022 Cam Ramsey MD [address] [facility] [address], [place], [address], [facility] 3 15:30:44 Pain of bilatera l hands 43812383616 942202 Active 2022 MD Tadeo [address] [facility] [address], [place], [address], [facility] 3 18:04:03 Degenera tion of cervical interver tebral disc 59427176 Active 2023 Cam Ramsey MD [address] [facility] [address], [place], [address], [facility] 4 12:03:56 Dyspnea on exertion 19491943 Active 2023 Dyspnea on exertion Cam Ramsey MD [address] [facility] [address], [place], [address], [facility] 4 12:10:21 Pruritic disorder 640436048 Active 2023 Cam Ramsey MD [address] [facility] [address], [place], [address], [facility] 4 11:47:31 Onychomy cosis of toenails 628103152 Active 2023 [facility] 4 14:05:53 Traveler 's diarrhea 56280359 Active 2023 Cam Ramsey MD [address] [facility] [address], [place], [address], [facility] 4 10:08:34 Hearing loss 41886102 Active 2024 MD Tadeo [address] [facility] [address], [place], [address], [facility] 5 10:39:04 Impaired fasting glycemia 012136747 Active 2024 Cam Ramsey MD [address] [facility] [address], [place], [address], [facility] 18:27:19 Prediabe mayo 517537279 Active 2024 Cam Ramsey MD [address] [facility] [address], [place], [address], [facility] 5 10:40:22 Seasonal allergy 866032569 Active 2024 MD Tadeo Sam[address] [facility] [address], [place], [address], [facility] 10:47:31 Problem Notes None recorded. Procedures Surgical History Date Name Laterality Status Provider Name and Address Organization Details Recorded Time 06/10/20 10 cholecystectomy completed MD Tadeo Sam[address] [facility] [address], [place], [address], [facility] 01/14/2024 11:58:15 10/09/19 appendectomy completed Cam Ramsey MD [address] [facility] [address], [place], [address], [facility] 01/14/2024 11:58:40 12/03/19 00 repair of atrial septal defect with tissue graft completed MD Tadeo [address] [facility] [address], [place], [address], [facility] 01/14/2024 11:58:03 Imaging Results None recorded. Procedure Notes None recorded. Medical Equipment None Reported. Allergies No known drug allergies Medications Name Sig Start Date Stop Date Status Note LastModified by Organization Details LastModified Time terbinafine HCl 1 % topical cream 1 applicati on Externall y Once a day for 30 days 2023 active Not Available Not Available Not Avai lable meloxicam 15 mg tablet 09/01 completed Not Available Not Available Not Available ciprofloxac in 500 mg tablet Take 1 tablet every 12 hours by oral route for 7 days. 04/19 completed Not Available Not Available Not Available peg-electro lyte solution 420 gram oral solution active Not Available Not Available Not Available benzonatate 100 mg capsule 09/01 completed Not Available Not Available Not Available gabapentin 300 mg capsule 09/01 completed Not Available Not Available Not Available hydroxyzine HCl 25 mg tablet 09/01 completed Not Available Not Available Not Available ibuprofen 600 mg tablet 09/01 completed Not Available Not Available Not Available Anusol-HC 25 mg rectal suppository active Not Available Not Available Not Available methylpredn isolone 4 mg tablets in a dose pack 09/01 completed Not Available Not Available Not Available fluticasone propionate 50 mcg/actuati on nasal spray,suspe nsion Rentz 1 spray twice a day by intranasa l route. 2024 active Not Available Not Available Not Avai lable loratadine 10 mg tablet Take 1 tablet every day by oral route. active Not Available Not Available No t Available azithromyci n 500 mg tablet Take 1 tablet every day by oral route for 5 days. 04/19 completed Not Available Not Available Not Available cyclobenzap rine 5 mg tablet 09/01 completed Not Available Not Available Not Available Vitals Date Recorded Body height Body temperature Body mass index (BMI) Body weight Heart rate Respiratory rate Oxygen saturation Systolic And Diastolic Provider Name and Address Organization Details Last Updated DateTime 4 170.18 cm 98.2 [degF] 26.3 kg/m2 94279.5 2 g 76 /min 18 /min 97 % 138/78 mm[Hg] [facility] 4 11:35:53 Date Recorded Body height Body temperature Body mass index (BMI) Body weight Heart rate Respiratory rate Oxygen saturation Systolic And Diastolic Provider Name and Address Organization Details Last Updated DateTime 5 170.18 cm 98.1 [degF] 26 kg/m2 88535.3 3 g 63 /min 18 /min 99 % 110/60 mm[Hg] [facility] 5 10:23:24 Date Recorded Body height Body temperature Body mass index (BMI) Body weight Heart rate Respiratory rate Oxygen saturation Systolic And Diastolic Provider Name and Address Organization Details Last Updated DateTime 4 170.18 cm 98 [degF] 25.4 kg/m2 28173.9 6 g 57 /min 16 /min 99 % 120/60 mm[Hg] [facility] 4 11:30:21 Date Recorded Body height Body temperature Body mass index (BMI) Body weight Heart rate Respiratory rate Oxygen saturation Systolic And Diastolic Provider Name and Address Organization Details Last Updated DateTime 4 170.18 cm 98 [degF] 25.7 kg/m2 59162.1 5 g 65 /min 16 /min 99 % 124/60 mm[Hg] [facility] 4 11:30:50 Date Recorded Body height Body temperature Body mass index (BMI) Body weight Heart rate Respiratory rate Oxygen saturation Systolic And Diastolic Provider Name and Address Organization Details Last Updated DateTime 5 170.18 cm 98.1 [degF] 26.6 kg/m2 52157.7 g 95 /min 18 /min 99 % 118/60 mm[Hg] [facility] 5 10:18:25 Social History None recorded. Functional Status None recorded. Mental Status None recorded. Family History Nothing Reported Notes:FamilyHistoryDetails: COMMENTS:0 brother(s) , 0 sister(s) . 0 son(s) , 0 daughter(s) Medical History No medical history recorded. Immunizations Vaccine Type Date Status Note Provider Nam e and Address Organization Details Recorded Time COVID-19, mRNA, LNP-S, PF, 30 mcg/0.3 mL dose 1 completed Cam Ramsey MD [address] [facility] [address], [place], [address], [facility] 10/09/2023 12:03:38 COVID-19, mRNA, LNP-S, PF, 30 mcg/0.3 mL dose 1 completed Cam Ramsey MD [address] [facility] [address], [place], [address], [facility] 10/09/2023 12:03:38 COVID-19, mRNA, LNP-S, PF, 30 mcg/0.3 mL dose 1 completed Cam Ramsey MD [address] [facility] [address], [place], [address], [facility] 10/09/2023 12:03:38 Tdap 7 completed Cam Ramsey MD [address] [facility] [address], [place], [address], [facility] 10/09/2023 12:03:38 meningococcal C conjugate 6 completed Cam Ramsey MD [address] [facility] [address], [place], [address], [facility] 10/09/2023 12:03:38 Influenza, split virus, quadrivalent, PF 0 completed Cam Ramsey MD [address] [facility] [address], [place], [address], [facility] 10/09/2023 12:03:38 Influenza, split virus, trivalent, PF 4 completed Not Available [facility] 04/19/2025 10:15:12 Past Encounters Encounter ID Performer Location Encounter Start Date Encounter Closed Date Diagnosis/Indication Diagnosis SNOMED-CT Code Diagnosis ICD10 Code Diagnosis IMO Codes Diagnosis Note [id number] Cam Ramsey MD [facility] [address] [facility] [address] [place] [address] 03/27/2023 14:56:32 03/27/2023 16:21:00 Preventive procedure 562299196 Z29.9 flu: 2021, every yearpneumo daylin: nevercovid vaccine: 2 shots and one booster; colonoscop y: few times in the past x which were all negative. Chronic id iopathic constipation 64711551 K59.04 Hemorrhoid al bleeding in the pastDiet change in as needed stool softener use Neck pain 81931700 M54.2 On and off neck painWill be evaluated with cervical spine x-ray Adult [facility] th examination 972946582 Z00.00 Preventati ve measures diet physical activityRe viewed during the visit History of repair of atrial septal defect 930782137 Z98.890 History of ASD repair Hyperlipidemia 73233427 E78.5 LDL 123Diet controlled Gastroesop hageal reflux disease without esophagitis 907521187 K21.9 Controlled Hemorrhoids 71594236 K64 .9 History of hemorrhoid al [id number] Cam Ramsey MD [facility] [address] [address] 10/09/2023 11:34:52 10/09/2023 12:16:14 Pain of bilateral hands 5785841454 0927527 M79.641 M79.642 xr with no arthritisc ontinue to physical therapy Preventive procedure 169 042907 Z29.9 flu: 2021, every yearpneumo daylin: nevercovid vaccine: 2 shots and one boostercol onoscopy: few times in the past x which were all negative. Chronic id iopathic constipation 80210132 K59.04 Hemorrhoid al bleeding in the pastDiet change in as needed stool softener use History of repair of atrial septal defect 203103533 Z98.890 History of ASD repair Hyperlipidemia 79944160 E78.5 LDL 123Diet controlled Gastroesop hageal reflux disease without esophagitis 266176335 K21.9 Controlled Hemorrhoids 56937726 K64 .9 History of hemorrhoid al Degenerati on of cervical intervertebral disc 51084775 M50.30 xr cervical spine with mild ddd c4-C5, moderate to severe C5-C6 and C6-C7 Adult heal th examination 151990474 Z00.00 Preventati ve measures diet physical activityRe viewed during the visit Screening for malignant neoplasm of prostate 674315218 Z12.5 Dyspnea on exertion 6084 5006 R06.09 on and off [id number] Cam Ramsey MD [facility] [address] [address] 11/10/2023 11:17:31 11/10/2023 12:03:50 Degeneration of cervical intervertebral disc 48769108 M50.30 xr cervical spine with mild ddd c4-C5, moderate to severe C5-C6 and C6-C7 Pain of bi lateral hands 9604462861 7060716 M79.641 M79.642 xr with no arthritisc ontinue to physical therapy Chronic id iopathic constipation 06514006 K59.04 Hemorrhoid al bleeding in the pastDiet change in as needed stool softener use History of repair of atrial septal defect 041063188 Z98.890 History of ASD repair Hyperlipidemia 53807987 E78.5 LDL 123Diet controlled Gastroesop hageal reflux disease without esophagitis 321808253 K21.9 Controlled Hemorrhoids 26067385 K64 .9 History of hemorrhoid arianna and off issuewill give anusol hcadd gi referral to see for colonscopy Preventive procedure 169 106560 Z29.9 flu: 2021, every yearpneumo daylin: nevercovid vaccine: 2 shots and one boostercol onoscopy: few times in the past x which were all negative. Dyspnea on exertion 6084 5006 R06.09 on and offstress test which was ordered but denied [id number] Cam Ramsey MD [facility] [address] [facility] [address] [place] [address] 01/14/2024 11:09:19 01/14/2024 11:59:57 Pruritic disorder 406349372 L29.9 no rash. generalise dhx of dry skinwill suggest benadrl prnwill also check cbc, cmp [id number] Cam Ramsey MD [facility] [address] [facility] [address] [place] [address] 10/13/2024 10:16:08 10/13/2024 10:53:51 Hearing loss 19560470 H90.11 kirk is central.ri nnes positive on right , neg on left.sugge stive of conductive hearing problem mild on right side.recen tly had upper resp infectionw ill add flonase nasal spray and loratadine Hemorrhoids 17069539 K64 .9 History of hemorrhoid arianna and off issueadded anusol hcadd gi referral to see for colonscopy : he states he went to dr. Gilbert to see for colonscopy : which was negative. Degenerati on of cervical intervertebral disc 65723450 M50.30 xr cervical spine with mild ddd c4-C5, moderate to severe C5-C6 and C6-Q5mirjz eted physical therapy 01/2024 Pain of bi lateral hands 9397875922 2014230 M79.641 M79.642 xr with no arthritisc ontinue to physical therapy Chronic id iopathic constipation 05826605 K59.04 Hemorrhoid al bleeding in the pastDiet change in as needed stool softener usecolonsc opy done by Dr. Gilbert. History of repair of atrial septal defect 934340174 Z98.890 History of ASD repair Hyperlipidemia 76566210 E78.5 LDL 123Diet controlled Gastroesop hageal reflux disease without esophagitis 617991879 K21.9 Controlled Preventive procedure 169 169715 Z29.9 flu: 2021, every yearpneumo daylin: nevercovid vaccine: 2 shots and one boostercol onoscopy: few times in the past x which were all negative. sees dr. Gilbert. underwent colonscopy : no issues Dyspnea on exertion 6084 5006 R06.09 on and offstress test which was ordered but deniedhe completed stress test eventually 2023 which came back negative Screening for malignant neoplasm of prostate 625618254 Z12.5 [id number] Cam Ramsey MD [facility] [address] [facility] [address] [place] [address] 04/19/2025 10:10:58 04/19/2025 10:55:52 Hearing loss 28868793 H90.11 kirk is central.ri nnes positive on right , neg on left.sugge stive of conductive hearing problem mild on right side.recen tly had upper resp infectiona dded flonase nasal spray and loratadine resolved Degenerati on of cervical intervertebral disc 29691206 M50.30 xr cervical spine with mild ddd c4-C5, moderate to severe C5-C6 and C6-J5brkeg eted physical therapy 01/2024stil l has some stiffnesst ylenol prn vs nsaids prn Chronic id iopathic constipation 96279913 K59.04 Hemorrhoid al bleeding in the pastDiet change in as needed stool softener usecolonsc opy done by Dr. Gilbert. Hyperlipidemia 97548024 E78.5 LDL 123Diet controlled 12/02: 99 Hemorrhoids 41889582 K64 .9 History of hemorrhoid arianna and off issueadded anusol hcadd gi referral to see for colonoscop y: he states he went to dr. Gilbert to see for colonscopy : which was negative. Pain of bi lateral hands 4869654324 3460344 M79.641 M79.642 xr with no arthritisc ontinue to physical therapy History of repair of atrial septal defect 159480683 Z98.890 History of ASD repair Gastroesop hageal reflux disease without esophagitis 288889324 K21.9 Controlled Preventive procedure 169 430328 Z29.9 flu: 2021, neumo daylin: nevercovid vaccine: 2 shots and one boostercol onoscopy: few times in the past x which were all negative. sees dr. Gilbert. underwent colonscopy : no issues Dyspnea on exertion 6084 5006 R06.09 on and offstress test which was ordered but deniedhe completed stress test eventually 05/2024 which came back negative Prediabetes 492031899 R7 3.03 006608 5.8 Seasonal allergy 3871096 04 J30.2 60455 zyrtec/cla ritin/lcara graadd flonase nasal spray Health Concerns Section Related Observation LastModified by Organization Detai ls LastModified Time None Recorded Concern Status LastModified by Organization Details LastModified Time None Recorded Advance Directives Directive None Recorded Payers Insurance Date Sequence Insurance Name Policy Number Policy Rodriguez Covered Member ID Rodriguez Member ID Guarantor Name 11/09/[address] [facility] Abidee Ali [id number] Abid Ali 04/19/[address] [facility] [id number] Abid Ali [id number] Abid Ali 04/25/2025 1 [facility] (MEDICARE REPLACEMENT/A DVANTAGE - PPO) [id number] Abid Ali [id number] Abid Ali Notes Date Note Type Note Provider Name and Address Organization Details Recorded Time 10/09/2023 text/html ROS as noted in the HPI Pt here for review of xray of hand. C/O shortness of breath on exertion. No chest pain, nausea or vomiting. no cough. no leg swelling. 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 stresss test in the past was negative. Cam Ramsey MD [address] [facility] [address], [place], [address], [facility] 10/09/2023 12:13:39 11/10/2023 text/html ROS as noted in the HPI Pt here for sick visit. C/O hemorroides. No shortness of breath, nausea or vomiting. he is trying to change diet, he is not able to drink or eat anything due to ramadan and this has worsened the situation Cam Ramsey MD [address] [facility] [address], [place], [address], [facility] 11/10/2023 12:02:38 01/14/2024 text/html ROS as noted in the HPI Pt here for sick visit. C/O itching from waist down x 3 weeks. Not aware of any changes in laundry detergent. No chest pain, shortness of breath, nausea or vomiting. MD Tadeo Sam[address] [facility] [address], [place], [address], [facility] 01/14/2024 12:13:03 10/13/2024 text/html ROS as noted in the HPI Pt here for follow up. C/O cough, body aches, ear pressure, fever, chills, congestion, sneezing x 10 days. All symptoms besides cough and ear pressure have improved. Denies chest pain, shortness of breath, nausea or vomiting. MD Tadeo Sam[address] [facility] [address], [place], [address], [facility] 10/13/2024 10:49:34 04/19/2025 text/html ROS as noted in the HPI Pt here for follow up. this is his initial medicare visit. C/O itchy throat and ears due to increase of allergies. No falls noted. No chest pain, shortness of breath, nausea or vomiting. Good appetite. Eye exam due in May. Cont. to be active and exercise. MD Tadeo Sam[address] [facility] [address], [place], [address], [facility] 04/19/2025 10:51:22
[2025-07-28 21:43] VITALS: BP 115/77; PULSE 74; RESP 18; TEMP 36.6; O2SAT 95
[2025-07-28 22:05] LABS: Hematocrit 41.4 % (42.0-52.0); Hemoglobin 15.3 g/dL (14.0-18.0); Immature Granulocyte Percent A 0.2 % (0-0.5); Lymphocytes Absolute Auto 1.54 K/mm3 (0.9-3.2); Mean Corpuscular HGB Conc 37.0 g/dl (32-36); Mean Corpuscular Hemoglobin 31.8 pg (26-34); Mean Corpuscular Volume 86.1 fl (80-100); Nucleated Red Blood Cells Absolute Auto 0.000 K/mm3 (0.0-0.012); Nucleated Red Blood Cells Perc 0.0 % (0.0-0.2); Platelet Count Result 224 k/mm3 (150-375); Red Blood Count 4.81 M/mm3 (4.6-6.20); White Blood Count 5.4 K/mm3 (4.5-10.0)
[2025-07-28 22:18] LABS: INR 1.0; Partial Thromboplastin Time 28.2 Seconds (22.3-36.8); Prothrombin Time 13.0 Seconds (11.1-14.7)
[2025-07-28 22:19] LABS: Alanine Aminotransferase 27 U/L (6-50); Albumin Level 4.3 g/dL (3.5-5.1); Alkaline Phosphatase 75 U/L (38-126); Anion Gap 7 mmol/L (4-12); Aspartate Amino Transferase 27 U/L (17-59); Bilirubin,Total 0.5 mg/dL (0.2-1.3); Blood Urea Nitrogen 18 mg/dL (9-20); Calcium 9.0 mg/dL (8.4-10.2); Carbon Dioxide 28 mmol/L (22-30); Chloride 104 mmol/L (98-107); Estimated Glomerular Filt Rate > 60; Glucose 135 mg/dL (65-110); Lipase 221 U/L (23-300); Potassium 4.0 mmol/L (3.4-5.0); Sodium 139 mmol/L (137-145); Total Protein 7.2 g/dL (6.3-8.2)
[2025-07-28 22:23] VITALS: BP 121/75; PULSE 67; RESP 19; O2SAT 99
[2025-07-28 22:29] VITALS: TEMP 36.3
[2025-07-28 22:31] VITALS: BP 120/82; PULSE 53; RESP 16; O2SAT 99
[2025-07-28 22:31] LABS: Troponin I < 0.012 ng/mL (0.000-0.034)
[2025-07-28 22:46] VITALS: BP 118/79; PULSE 59; RESP 14; O2SAT 100
[2025-07-28 23:01] VITALS: BP 122/83; PULSE 61; RESP 20; O2SAT 99
--- NOTE | 2025-07-28 23:02 | PC.NURSE ---
pt states he took 81 mg aspirin prior to arrival. no dose of aspirin given here.
--- NOTE | 2025-07-29 00:32 | ECG_ITS ---
Test Date: 2025-07-29 00:32:37 Measurements Intervals [place] Rate: 61 P: 63 DC: 220 QRS: 45 QRSD: 143 T: 40 QT: 456 QTc: 460 Interpretive Statements SINUS RHYTHM WITH FIRST DEGREE AV BLOCK RIGHT BUNDLE BRANCH BLOCK BASELINE ARTIFACT- I, II, III, AVR, AVF, V3 ABNORMAL ECG Compared to ECG 07/28/2025 21:42:00 First degree AV block now present I Electronically Signed On 07-29-2025 09:09:22 PAPER REWINDER by Timur Gomez D.O.
--- NOTE | 2025-07-29 00:47 | ED_ITS ---
HPI - Chest Pain General Chief Complaint: Chest Pain Stated Complaint: HTN, chest pain Time Seen by Provider: 07/28/25 23:20 History of Present Illness HPI narrative: 64-year-old male with history of hypertension presenting to the emergency department today with elevated blood pressure readings at home associated with some chest discomfort. Chest discomfort stopped inserted his elevated blood pressure readings. He states he took his cardiac medications at home including aspirin, nitro and metoprolol. States that he has a physical education specialist with a planned routine cardiac catheterization in August of next year. States that he had a recent stress test that showed no acute findings and his physical education specialist offered him a catheterization for his recurrent symptoms of some chest tightness and chest pressure. Denies any symptoms this time. States he is otherwise in his normal state of health without any recent changes. No medication adjustments recently. No recent health concerns. Denies any active chest pain presently. No nausea vomiting, diaphoresis, abdominal pain, back pain, fever, chills. No exertional chest pain or exertional dyspnea today. States his blood pressure is now back to normal. Related Data Allergies Allergy/AdvReac Type Severity Reaction Status Date / Time No Known Allergies Allergy Unverified 08/21/12 15:07 Review of Systems 2 Review of Systems: As reviewed above in HPI All systems reviewed & are unremarkable except as noted in HPI and below PMFSH Family History Family History Mother Family history of Alzheimer's disease Family history of heart disease in male family member before age 55 Father Family history of type 2 diabetes mellitus Patient's father is Other Hypertension Social History Social History Smoking status: Former smoker Second hand tobacco smoke exposure: Yes Smoking end date: 08/10/94 Alcohol intake: never Exam 2 Narrative: GENERAL: [Well-appearing, well-nourished, and in no acute distress.] HEAD: [Normocephalic, atraumatic.] EYES: [PERRLA and EOMI.] ENT: Nares clear, no rhinorrhea or epistaxis. Mucous membranes moist. NECK: Supple. CHEST: [Clear to auscultation. No respiratory distress.] HEART: [Regular rate and rhythm]. No murmur heard. [Normal peripheral pulses.] ABDOMEN: [Soft, nondistended], [nontender], [No rigidity or guarding] EXTREMITIES: Normal range of motion. [No edema.] SKIN: Warm, dry, no rash. NEURO: [No focal deficits]. Alert and oriented [x3.] PSYCH: [Normal mood and affect.] Course Vital Signs Vital signs: Vital Signs Temperature 36.6 C 07/28/25 21:43 Pulse Rate 74 07/28/25 21:43 Respiratory Rate 18 07/28/25 21:43 Blood Pressure 115/77 07/28/25 21:43 Pulse Oximetry 95 07/28/25 21:43 Oxygen Delivery Room Air 07/28/25 21:43 Temperature 36.3 C L 07/28/25 22:29 Pulse Rate 61 07/29/25 01:33 Respiratory Rate 16 07/29/25 01:33 Blood Pressure 127/79 07/29/25 01:33 Pulse Oximetry 100 07/29/25 01:33 Oxygen Delivery Room Air 07/28/25 22:23 MDM MDM Narrative Medical decision making narrative: 64-year-old male with history of hypertension presenting to the emergency department today with elevated blood pressure readings at home associated with some chest discomfort. Chest discomfort stopped inserted his elevated blood pressure readings. He states he took his cardiac medications at home including aspirin, nitro and metoprolol. States that he has a physical education specialist with a planned routine cardiac catheterization in August of next year. States that he had a recent stress test that showed no acute findings and his physical education specialist offered him a catheterization for his recurrent symptoms of some chest tightness and chest pressure. Denies any symptoms this time. States he is otherwise in his normal state of health without any recent changes. No medication adjustments recently. No recent health concerns. Denies any active chest pain presently. No nausea vomiting, diaphoresis, abdominal pain, back pain, fever, chills. No exertional chest pain or exertional dyspnea today. States his blood pressure is now back to normal. Patient is well appearing not any acute distress. He has strong symmetric pulses, clear breath sounds. Normal vital signs here without any tachypnea, tachycardia, fever, hypoxemia or blood pressure concerns. His symptoms have completely resolved. Symptoms consistent with anxiety, potential hypertension, LVH, ACS, anginal equivalent. He is asymptomatic at this time but given his cardiac risk factors a cardiac workup with serial troponins and EKG as well as chest x-ray and labs were obtained. He was placed on communications editor. D-dimer ordered as well but he has no risk factors for thromboembolic event. Cardiac labs are normal. Negative dimer, negative troponin, negative delta troponin. EKG without any acute ischemic changes. Remains hemodynamically stable and asymptomatic. Patient felt comfortable with outpatient cardiology follow-up and return precautions. Safe for discharge home at this time. Differential Diagnosis Differential Diagnosis: Symptoms consistent with anxiety, potential hypertension, LVH, ACS, anginal equivalent. Lab Data MDM Lab Attestation statement: I personally reviewed the patient's lab results. 07/28/25 21:55 07/28/25 21:55 Labs: Lab Results 07/28/25 07/29/25 Range/Units 21:55 00:31 WBC 5.4 (4.5-10.0) K/mm3 RBC 4.81 (4.6-6.20) M/mm3 Hgb 15.3 (14.0-18.0) g/dL Hct 41.4 L (42.0-52.0) % MCV 86.1 (80-100) fl MCH 31.8 (26-34) pg MCHC 37.0 H (32-36) g/dl RDW 11.9 (11.5-14.5) % Plt Count 224 (150-375) k/mm3 MPV 9.4 (7.4-10.4) fl Immature Gran % (Auto) 0.2 (0-0.5) % Neut % (Auto) 54.6 (45.5-73.1) % Lymph % (Auto) 28.6 (18.3-44.2) % [place] % (Auto) 9.3 H (2.6-8.5) % Eos % (Auto) 6.9 H (0-4.4) % Baso % (Auto) 0.4 (0.2-1.2) % Lymph # (Auto) 1.54 (0.9-3.2) K/mm3 [place] # (Auto) 0.5 (0.1-0.6) K/mm3 Eos # (Auto) 0.4 H (0-0.3) K/mm3 Baso # (Auto) 0.0 (0.0-0.1) K/mm3 Abs Immat Gran (auto) 0.01 (0.00-0.031) K/mm3 Absolute Neuts (auto) 3.0 (1.3-6.7) K/mm3 Absolute Nucleated RBC 0.000 (0.0-0.012) K/mm3 Nucleated RBC % 0.0 (0.0-0.2) % PT 13.0 (11.1-14.7) Seconds INR 1.0 APTT 28.2 (22.3-36.8) Seconds D-Dimer < 0.27 (<0.48) ug/mL Sodium 139 (137-145) mmol/L Potassium 4.0 (3.4-5.0) mmol/L Chloride 104 (98-107) mmol/L Carbon Dioxide 28 (22-30) mmol/L Anion Gap 7 (4-12) mmol/L BUN 18 (9-20) mg/dL Creatinine 1.13 (0.7-1.3) mg/dL Estim Creat Clear Calc Not Reportable Estimated GFR > 60 (59 - ) Glucose 135 H (65-110) mg/dL Calcium 9.0 (8.4-10.2) mg/dL Total Bilirubin 0.5 (0.2-1.3) mg/dL AST 27 (17-59) U/L ALT 27 (6-50) U/L Alkaline Phosphatase 75 (38-126) U/L Troponin I < 0.012 < 0.012 (0.000-0.034) ng/mL Total Protein 7.2 (6.3-8.2) g/dL Albumin 4.3 (3.5-5.1) g/dL Lipase 221 (23-300) U/L Imaging Data Radiologist's impression: ITS Impressions Chest X-Ray 07/28/25 22:13 IMPRESSION: No acute lung findings.] [ ] Discharge Plan Discharge Clinical Impression: Chest tightness Patient Disposition: Home Condition: Stable Instructions: Antibiotic Form, Chest Pain (DC) Additional Instructions: All of your laboratory studies are normal. No signs of any cardiac damage at this time. Negative troponin. Negative D-dimer so no suspicion presently for a blood clot. EKG and chest x-rays unremarkable. Follow-up with your physical education specialist for scheduled catheterization next month. Return with any persistent new or emergent concerns. Continue home medications as directed. Patient Language: Other Follow-up/Referrals: Cam Ramsey MD [Primary Care Provider, Hospitalist] Time of Disposition: 01:14
[2025-07-29 01:00] LABS: Troponin I < 0.012 ng/mL (0.000-0.034)
[2025-07-29 01:33] VITALS: BP 127/79; PULSE 61; RESP 16; O2SAT 100
== END 2025-07-29 01:34 | disposition home or self-care (01) ==
PROVIDERS: Emergency Provider Student in an Organized Health Care Education/Training Program; PCP Internal Medicine
DX: R07.89 Other chest pain (principal); Z87.891 Personal history of nicotine dependence
CPT/HCPCS: 36415; 71046; 80053; 83690; 84484; 85025; 85380; 85610; 85730; 93005; 99284